=== PATIENT | male | born 1940 | race Caucasian/White ===

== ENCOUNTER 2021-07-04 16:19 | Emergency (ER) | payer MEDICARE ==
--- NOTE | 2021-07-04 16:32 | ERPHSYRPT ---
- History of Present Illness Time Seen by Provider: 07/04/21 16:27 Source: patient, EMS Exam Limitations: no limitations Physician History: This is an 81-year-old white male resident of [facility] a local nursing/extended care facility who presents via EMS because of a comment that was made that well then he will go home and shoot himself. The patient has had right foot issues including surgery and is a resident at this facility for rehab. After his surgery and a period of rehabilitation, he was sent home and fell again. He was then readmitted to [facility] where he was authorized to stay for certain period of time but now has extended beyond that time and they have rejected his appeal to stay in the facility till he is more functional. 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 Patient states he does not want to harm himself or anyone else. He said the above statement out of anger and frustration because his appeal was denied for him to stay to continue his rehabilitation. Patient has not having auditory or visual hallucinations. Timing/Duration: today Severity of Symptoms-Max: mild Severity of Symptoms-Current: none Context related to: living circumstances, other (Health issues) Suicidal thoughts: other (Comment) Associated Symptoms: frustrated Previous symptoms: no prior history Allergies/Adverse Reactions: No Known Drug Allergies Allergy (Unverified 07/04/21 16:23) Home Medications: Aspirin [Aspirin EC] 1 tab PO DAILY 07/04/21 [History] Famotidine 20 mg [Pepcid 20 MG] 40 mg PO DAILY 07/04/21 [History] Gabapentin 1 tab PO TID 07/04/21 [History] Metoprolol Tartrate 25 mg [Lopressor 25MG Tab] 1 tab PO BID 07/04/21 [History] Travel Risk - International Travel Have you traveled outside of the country in past 3 weeks: No - Coronavirus Screening Are you exhibiting any of the following symptoms?: No Close contact with a COVID-19 positive Pt in past 14-21 Days: No - Past Medical History Pertinent Past Medical History: Yes - Past Surgical History Past Surgical History: Yes - Review of Systems Constitutional: No Symptoms Eyes: No Symptoms Ears, Nose, & Throat: No Symptoms Respiratory: No Symptoms Cardiac: No Symptoms Abdominal/Gastrointestinal: No Symptoms Genitourinary Symptoms: No Symptoms Musculoskeletal: No Symptoms Skin: No Symptoms Neurological: No Symptoms Psychological: No Symptoms Endocrine: No Symptoms Hematologic/Lymphatic: No Symptoms Immunological/Allergic: No Symptoms All Other Systems: Reviewed and Negative - Nursing Vital Signs Nursing Vital Signs: Initial Vital Signs Temperature 98.1 F 07/04/21 16:24 Pulse Rate 115 H 07/04/21 16:24 Respiratory Rate 18 07/04/21 16:24 Blood Pressure 139/64 07/04/21 16:24 O2 Sat by Pulse Oximetry 98 07/04/21 16:24 Pain Scale Pain Intensity 0 - Physical Exam General Appearance: no apparent distress, alert, anxiety Eyes, Ears, Nose, Throat Exam: normal ENT inspection, moist mucous membranes Neck Exam: normal inspection, non-tender, supple, full range of motion Respiratory Exam: normal breath sounds, lungs clear, airway intact, No chest tenderness, No respiratory distress Cardiovascular Exam: regular rate/rhythm, normal heart sounds Gastrointestinal/Abdominal Exam: soft, normal bowel sounds, No tenderness Extremities Exam: other (Patient with right lower extremity postsurgical dressing and boot in place) Current Suicidality: denies suicide plan Neurological Exam: alert, normal mood/affect, calm, 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, oriented x 3, anxious, depressed affect Appearance: appropriate appearance, appropriate insight, neat, no memory impairment Behavior/Eye Contact/Speech: alert & cooperative, cooperative, good eye contact, normal speech Thoughts/Hallucinations: normal thought pattern, no apparent hallucination Skin Exam: normal color, warm, dry SpO2 Interpretation: normal O2 Delivery: Room Air - Course Nursing assessment & vital signs reviewed: Yes Ordered Tests: Active Orders 24 hr Category Date Time Status EKG-ER Only STAT Care 07/04/21 16:34 Active ACETAMINOPHEN Stat Lab 07/04/21 17:10 Completed CBC W DIFF Stat Lab 07/04/21 17:10 Completed CMP Stat Lab 07/04/21 17:10 Completed ETHYL ALCOHOL Stat Lab 07/04/21 17:10 Completed SALICYLATE Stat Lab 07/04/21 17:10 Completed UA W/RFX CULTURE Stat Lab 07/04/21 17:00 Completed Urine Triage Profile Stat Lab 07/04/21 16:53 Completed Lab/Rad Data: Laboratory Result Diagrams 07/04/21 17:10 07/04/21 17:10 Laboratory Results 07/04/21 07/04/21 07/04/21 Range/Units 17:10 17:10 17:00 WBC 9.9 (4.0-10.5) x10^3/uL RBC 4.08 L (4.1-5.6) x10^6/uL Hgb 12.1 L (12.5-18.0) g/dL Hct 38.2 L (42-50) % MCV 93.6 (78-100) fL MCH 29.7 (26-32) pg MCHC 31.7 L (32-36) g/dL RDW 14.0 (11.5-14.0) % Plt Count 235 (150-450) x10^3/uL MPV 8.5 (7.5-11.0) fL Gran % 68.1 H (36.0-66.0) % Immature Gran % (Auto) 0.5 H (0.00-0.4) % Nucleat RBC Rel Count 0.0 (0.00-0.1) % Eos # (Auto) 0.19 (0-0.5) x10^3/uL Immature Gran # (Auto) 0.05 H (0.00-0.03) x10^3u/L Absolute Lymphs (auto) 2.19 (1.0-4.6) x10^3/uL Absolute Monos (auto) 0.68 (0.0-1.3) x10^3/uL Absolute Nucleated RBC 0.00 (0.00-0.01) x10^3u/L Lymphocytes % 22.2 L (24.0-44.0) % Monocytes % 6.9 (0.0-12.0) % Eosinophils % 1.9 (0.00-5.0) % Basophils % 0.4 (0.0-0.4) % Absolute Granulocytes 6.71 (1.4-6.9) x10^3/uL Basophils # 0.04 (0-0.4) x10^3/uL Sodium 136 L (137-145) mmol/L Potassium 4.6 (3.5-5.1) mmol/L Chloride 102 (98-107) mmol/L Carbon Dioxide 28 (22-30) mmol/L Anion Gap 11.0 (5-15) MEQ/L BUN 16 (9-20) mg/dL Creatinine 0.83 (0.66-1.25) mg/dL Estimated GFR > 60.0 ML/MIN Glucose 133 H (74-106) mg/dL Calcium 9.3 (8.4-10.2) mg/dL Total Bilirubin 0.40 (0.2-1.3) mg/dL AST 22 (17-59) U/L ALT 13 (0-50) U/L Alkaline Phosphatase 93 (38-126) U/L Serum Total Protein 6.3 (6.3-8.2) g/dL Albumin 3.4 L (3.5-5.0) g/dL Urinalys Dipstick Clnc MAIN LAB Urine Color YELLOW (YELLOW) Urine Appearance CLEAR (CLEAR) Urine pH 7.0 (5-6) Ur Specific [place] 1.020 (1.005-1.025) POC Urine Protein Conf NEGATIVE (Negative) Urine Ketones NEGATIVE (NEGATIVE) Urine Nitrite NEGATIVE (NEGATIVE) Urine Bilirubin NEGATIVE (NEGATIVE) Urine Urobilinogen 0.2 (0-1) mg/dL Urine Leukocytes NEGATIVE (NEGATIVE) Urine WBC (Auto) 0-2 (0-5) /HPF Urine RBC (Auto) NONE (0-2) /HPF U Epithel Cells (Auto) NONE (FEW) /HPF Urine Bacteria (Auto) NONE (NEGATIVE) /HPF Urine RBC NEGATIVE (0-5) Sixto/ul Urine Mucus (Auto) SLIGHT (NEGATIVE) /HPF Ur Culture Indicated? NO Urine Glucose NEGATIVE (NEGATIVE) mg/dL Salicylates < 1.0 L (2-20) mg/dL Urine Opiates Level (NEGATIVE) Ur Methadone (NEGATIVE) Acetaminophen < 10 L (10-30) ug/ml Urine Barbiturates (NEGATIVE) Ur Phencyclidine (PCP) (NEGATIVE) Urine Amphetamine (NEGATIVE) U Benzodiazepine Level (NEGATIVE) Urine Cocaine (NEGATIVE) Urine Marijuana (THC) (NEGATIVE) Ethyl Alcohol < 10 (0-10) mg/dL 07/04/21 Range/Units 16:53 WBC (4.0-10.5) x10^3/uL RBC (4.1-5.6) x10^6/uL Hgb (12.5-18.0) g/dL Hct (42-50) % MCV (78-100) fL MCH (26-32) pg MCHC (32-36) g/dL RDW (11.5-14.0) % Plt Count (150-450) x10^3/uL MPV (7.5-11.0) fL Gran % (36.0-66.0) % Immature Gran % (Auto) (0.00-0.4) % Nucleat RBC Rel Count (0.00-0.1) % Eos # (Auto) (0-0.5) x10^3/uL Immature Gran # (Auto) (0.00-0.03) x10^3u/L Absolute Lymphs (auto) (1.0-4.6) x10^3/uL Absolute Monos (auto) (0.0-1.3) x10^3/uL Absolute Nucleated RBC (0.00-0.01) x10^3u/L Lymphocytes % (24.0-44.0) % Monocytes % (0.0-12.0) % Eosinophils % (0.00-5.0) % Basophils % (0.0-0.4) % Absolute Granulocytes (1.4-6.9) x10^3/uL Basophils # (0-0.4) x10^3/uL Sodium (137-145) mmol/L Potassium (3.5-5.1) mmol/L Chloride (98-107) mmol/L Carbon Dioxide (22-30) mmol/L Anion Gap (5-15) MEQ/L BUN (9-20) mg/dL Creatinine (0.66-1.25) mg/dL Estimated GFR ML/MIN Glucose (74-106) mg/dL Calcium (8.4-10.2) mg/dL Total Bilirubin (0.2-1.3) mg/dL AST (17-59) U/L ALT (0-50) U/L Alkaline Phosphatase (38-126) U/L Serum Total Protein (6.3-8.2) g/dL Albumin (3.5-5.0) g/dL Urinalys Dipstick Clnc Urine Color (YELLOW) Urine Appearance (CLEAR) Urine pH (5-6) Ur Specific [place] (1.005-1.025) POC Urine Protein Conf (Negative) Urine Ketones (NEGATIVE) Urine Nitrite (NEGATIVE) Urine Bilirubin (NEGATIVE) Urine Urobilinogen (0-1) mg/dL Urine Leukocytes (NEGATIVE) Urine WBC (Auto) (0-5) /HPF Urine RBC (Auto) (0-2) /HPF U Epithel Cells (Auto) (FEW) /HPF Urine Bacteria (Auto) (NEGATIVE) /HPF Urine RBC (0-5) Sixto/ul Urine Mucus (Auto) (NEGATIVE) /HPF Ur Culture Indicated? Urine Glucose (NEGATIVE) mg/dL Salicylates (2-20) mg/dL Urine Opiates Level NEGATIVE (NEGATIVE) Ur Methadone NEGATIVE (NEGATIVE) Acetaminophen (10-30) ug/ml Urine Barbiturates NEGATIVE (NEGATIVE) Ur Phencyclidine (PCP) NEGATIVE (NEGATIVE) Urine Amphetamine NEGATIVE (NEGATIVE) U Benzodiazepine Level NEGATIVE (NEGATIVE) Urine Cocaine NEGATIVE (NEGATIVE) Urine Marijuana (THC) NEGATIVE (NEGATIVE) Ethyl Alcohol (0-10) mg/dL - Progress Progress: improved Progress Note: 07/04/21 20:39 Medical decision making: This patient presents from [facility] and is depressed and frustrated at his medical condition and living circumstances in the senior care. He was evaluated by [facility] via telepsych history and physical exam. It was performed by Birgit NATHAN, MILES Diaz, Rich Bill. The case was staffed with Dr. Akins. The plan for this patient is to follow a safety plan that is put into place and this will be forwarded to [facility]. The patient will return back to the extended care facility. Counseled pt/family regarding: lab results, diagnosis, need for follow-up - Departure Departure Disposition: Home Clinical Impression: Depression, Anxiety about health Condition: Stable Critical Care Time: No Additional Instructions: [facility] is to follow the safety plan that is put in place by [facility]. Please follow this plan. Patient is to resume all other orders.
[2021-07-04 17:19] LABS: Mucus SLIGHT /HPF (NEGATIVE); WBC 0-2 /HPF (0-5)
[2021-07-04 17:20] LABS: Absolute Neutrophil Ct (ANC) 6.71 x10^3/uL (1.4-6.9); Basophil (Absolute #) 0.04 x10^3/uL (0-0.4); Eosinophil % 1.9 % (0.00-5.0); Eosinophil (Absolute #) 0.19 x10^3/uL (0-0.5); Hematocrit 38.2 % (42-50); Hemoglobin 12.1 g/dL (12.5-18.0); Lymphocyte (Absolute #) 2.19 x10^3/uL (1.0-4.6); Lymphocytes % 22.2 % (24.0-44.0); Mean Cell Volume 93.6 fL (78-100); Mean Corpuscular Hemoglobin 29.7 pg (26-32); Mean Corpuscular Hgb Concent. 31.7 g/dL (32-36); Mean Platelet Volume 8.5 fL (7.5-11.0); Monocyte (Absolute #) 0.68 x10^3/uL (0.0-1.3); Monocytes % 6.9 % (0.0-12.0); Neutrophil % 68.1 % (36.0-66.0); Platelet Count 235 x10^3/uL (150-450); Red Blood Count 4.08 x10^6/uL (4.1-5.6); White Blood Count 9.9 x10^3/uL (4.0-10.5)
[2021-07-04 17:25] LABS: Amphetamine,Urine NEGATIVE (NEGATIVE); Barbiturate,Urine NEGATIVE (NEGATIVE); Benzodiazepine,Urine NEGATIVE (NEGATIVE); Cocaine,Urine NEGATIVE (NEGATIVE); Methadone,Urine NEGATIVE (NEGATIVE); Opiate,Urine NEGATIVE (NEGATIVE); PCP,Urine NEGATIVE (NEGATIVE); THC,Urine NEGATIVE (NEGATIVE)
[2021-07-04 17:29] LABS: Appearance CLEAR (CLEAR); Bilirubin NEGATIVE (NEGATIVE); Dipstick done @ ? MAIN LAB; Glucose NEGATIVE (NEGATIVE); Ketones NEGATIVE (NEGATIVE); Nitrite NEGATIVE (NEGATIVE); Protein,Urine Dip NEGATIVE (Negative); RBC NEGATIVE Ery/ul (0-5); Urine Cultured Indicated? NO; Urobilinogen 0.2 mg/dL (0-1)
[2021-07-04 17:43] LABS: ALBUMIN 3.4 g/dL (3.5-5.0); BLOOD UREA NITROGEN 16 mg/dL (9-20); CHLORIDE 102 mmol/L (98-107); Calcium 9.3 mg/dL (8.4-10.2); Carbon Dioxide 28 mmol/L (22-30); Creatinine 1 0.83 mg/dL (0.66-1.25); EST GLOMERULAR FILTRATION RATE > 60.0 ML/MIN; Glucose 133 mg/dL (74-106); Potassium 4.6 mmol/L (3.5-5.1); SGOT/AST 22 U/L (17-59); SGPT/ALT 13 U/L (0-50); SODIUM 136 mmol/L (137-145); Total Protein 6.3 g/dL (6.3-8.2)
[2021-07-04 17:44] LABS: ACETAMINOPHEN < 10 ug/ml (10-30); ALKALINE PHOSPHATASE 93 U/L (38-126); ETHYL ALCOHOL < 10 mg/dL (0-10); SALICYLATE < 1.0 mg/dL (2-20)
[2021-07-04 19:03] VITALS: PULSE 88
[2021-07-04 21:14] VITALS: BP 122/68; O2SAT 94
== END 2021-07-04 21:14 | disposition home or self-care (01) ==
LOC: ED 16:19
DX: F32.A Depression, unspecified (principal); F41.1 Generalized anxiety disorder; Z59.89 Other problems related to housing and economic circumstances; Z75.8 Other problems related to medical facilities and other health care; R45.851 Suicidal ideations
CPT/HCPCS: 36415; 80053; 80307; 81015; 85025; 90791; 93005; 99284; Q3014; G0480

== ENCOUNTER 2022-09-07 16:34 | Observation (INO) | payer MEDICARE ==
[2022-09-07] MEDS ORDERED: DUONEB 0.5-3 MG/3 ml Neb IH ONE ×2 (16:57→17:18)
[2022-09-07] MEDS ORDERED: Sodium Chloride 0.9% 500 ML 500 ML IV ONE ×2 (16:59→18:40)
--- NOTE | 2022-09-07 17:29 | XRAY ---
Indication: Altered mental status. Confusion. Multiple contiguous axial images obtained through the head without contrast. Comparison: August 02, 2021 Several images are slightly degraded by motion. Again age-appropriate global atrophy and moderate periventricular degenerative micro-ischemia bilaterally. No acute intracranial hemorrhage, abnormal extra-axial fluid collection, or mass effect. Fourth ventricle is midline without hydrocephalus. Bony calvarium intact. Visualized paranasal sinuses and mastoid air cells are clear. Impression: Mild motion artifact. Continued grossly nonacute senile brain.
--- NOTE | 2022-09-07 17:29 | XRAY ---
Indication: Cough. Altered mental status. Comparison: None Portable chest markedly underinflated without focal infiltrate, consolidation, or large effusion. Heart not enlarged. Bony thorax intact with osteopenia and moderate degenerative changes. Impression: Nonacute underinflated chest.
[2022-09-07 18:07] LABS: Absolute Neutrophil Ct (ANC) 9.83 x10^3/uL (1.4-6.9); BASOPHIL % 0.2 % (0.0-0.4); Basophil (Absolute #) 0.02 x10^3/uL (0-0.4); Eosinophil % 0.1 % (0.00-5.0); Eosinophil (Absolute #) 0.01 x10^3/uL (0-0.5); Hematocrit 27.3 % (42-50); Hemoglobin 8.5 g/dL (12.5-18.0); IMMATURE GRAN # 0.08 x10^3u/L (0.00-0.03); IMMATURE GRAN % 0.6 % (0.00-0.4); Lymphocyte (Absolute #) 1.68 x10^3/uL (1.0-4.6); Lymphocytes % 13.2 % (24.0-44.0); Mean Cell Volume 89.2 fL (78-100); Mean Corpuscular Hemoglobin 27.8 pg (26-32); Mean Corpuscular Hgb Concent. 31.1 g/dL (32-36); Mean Platelet Volume 8.2 fL (7.5-11.0); Monocyte (Absolute #) 1.09 x10^3/uL (0.0-1.3); Monocytes % 8.6 % (0.0-12.0); Neutrophil % 77.3 % (36.0-66.0); Platelet Count 295 x10^3/uL (150-450); Red Blood Count 3.06 x10^6/uL (4.1-5.6); White Blood Count 12.7 x10^3/uL (4.0-10.5)
[2022-09-07 18:22] LABS: ALBUMIN 3.1 g/dL (3.5-5.0); ANION GAP 14.2 MEQ/L (5-15); BILIRUBIN,TOTAL 1.3 mg/dL (0.2-1.3); Calcium 8.1 mg/dL (8.4-10.2); Creatinine 1 1.92 mg/dL (0.66-1.25); EST GLOMERULAR FILTRATION RATE 35.6 ML/MIN; Potassium 3.5 mmol/L (3.5-5.1); Total Protein 6.6 g/dL (6.3-8.2)
[2022-09-07] MEDS ORDERED: ROCEPHIN 2 Gm-D5w 50ML BAG** 2 G/50 ML IVPB IV STA (18:36)
[2022-09-07 18:38] LABS: MAGNESIUM 1.6 mg/dL (1.6-2.3); PROCALCITONIN 0.339 ng/mL (0.030-0.080)
[2022-09-07] MEDS ORDERED: ROCEPHIN 2 Gm-D5w 50ML BAG** 2 G/50 ML IVPB IV ONE (18:40)
[2022-09-07 18:41] LABS: Appearance Turbid (Clear); Bilirubin Negative (Negative); Blood Moderate (Negative); Epithelial Cells None Seen /HPF (None Seen); Glucose, Urine Negative (Negative); Hyaline Casts NONE SEEN /LPF (0-2); Ketones Negative (Negative); Leukocyte Esterase Large (Negative); Nitrite Negative (Negative); Protein,Urine Dip 300 (Negative); WBC >100 /HPF (0-5)
[2022-09-07 18:42] LABS: ADD URINE CULTURE? YES (NO); Bacteria Few /HPF (None Seen); RBC 0-2 /HPF (0-5)
--- NOTE | 2022-09-07 19:19 | ERPHSYRPT ---
- History of Present Illness Time Seen by Provider: 09/07/22 16:41 Source: patient, EMS, [facility]dc records Exam Limitations: clinical condition Patient Subjective Stated Complaint: Dixie, nurse at the [facility], states patient has been his baseline all day talking and active but at approx 1615 pt became lethargic and confused so they called EMS. Dixie also states fdc staff attempted to straight cath patiet x2 last night without success due to wanting to check for a UTI; Dixie did not know why the staff was suspicious for UTI. Dixie states pt generally is assist x2 and in a wheelchair. Triage Nursing Assessment: Pt arousable to shaking and name; confused; oriented to name only at time of triage. EMS states pt was alert and oriented one minute and then confused the next. Skin warm/pale/dry. No apparent respiratory distress. Physician History: 82 years old male fdc resident is brought in the ER with chief complaint of altered mental status/generalized weakness/lethargy which started around 4:15 PM today. Patient baseline is usually awake alert and there was a sudden decline. Patient has a suspicion for UTI and could not get urine sample yesterday for fdc. Patient is awake and alert, confused, follows simple commands. No obvious neurodeficit. Blood pressure is on the lower side, 88 systolic but patient is not in any distress. Not a good historian and history is limited. Allergies/Adverse Reactions: No Known Drug Allergies Allergy (Unverified 09/07/22 16:59) Home Medications: Aspirin [Aspirin EC] 1 tab PO DAILY 07/04/21 [History] Albuterol Sulfate [Albuterol Sulfate Hfa] 2 puff IH Q4HPRN PRN 09/07/22 [H istory] Amitriptyline HCl 25 mg [Amitriptyline 25 mg Tablet] 25 mg PO HS 09/07/22 [History] Atorvastatin Calcium 80 mg PO HS 09/07/22 [History] Emollient Combination No.69 [Eucerin Skin Calming] 1 unit TOP BID 09/07/22 [History] Latanoprost 1 drop OP HS 09/07/22 [History] Magnesium Oxide 400 mg PO DAILY 09/07/22 [History] Metoprolol Tartrate 50 mg [Lopressor 50 MG] 50 mg PO BID 09/07/22 [ History] PANTOPRAZOLE 40 mg Tablet [Protonix 40MG Tablet] 40 mg PO BID 09/07/22 [History] Polyethylene Glycol 3350 [Clearlax] 1 scoop PO DAILY PRN 09/07/22 [History] hydroCHLOROthiazide [Hydrochlorothiazide] 12.5 mg PO DAILY 09/07/22 [History] Hx Tetanus, Diphtheria Vaccination/Date Given: (unknown) Hx Influenza Vaccination/Date Given: (unknown) Hx Pneumococcal Vaccination/Date Given: (unknown) Travel Risk - International Travel Have you traveled outside of the country in past 3 weeks: No - Coronavirus Screening Are you exhibiting any of the following symptoms?: Yes Symptoms: Cough: New Onset Close contact with a COVID-19 positive Pt in past 14-21 Days: No - Vaccine Status Have you recieved a Covid-19 vaccination: (unknown) Jde Developer: Unknown - Vaccination Dates Date of 2cond Vaccination (if applicable): na Dates if Unknown: na - Review of Systems All Other Systems: Unable due to condition - Past Medical History Pertinent Past Medical History: Yes Neurological History: Peripheral Neuropathy Cardiac History: Hypertension Respiratory History: No Pertinent History Endocrine Medical History: No Pertinent History Musculoskeletal History: No Pertinent History GI Medical History: GERD History: No Pertinent History Psycho-Social History: No Pertinent History Male Reproductive Disorders: No Pertinent History - Past Surgical History Past Surgical History: Yes Neuro Surgical History: No Pertinent History Cardiac: No Pertinent History Respiratory: No Pertinent History Gastrointestinal: No Pertinent History Genitourinary: No Pertinent History Musculoskeletal: No Pertinent History Male Surgical History: No Pertinent History - Social History Smoking Status: Unknown if ever smoked Exposure to second hand smoke: No Drug Use: none Patient Lives Alone: No (ECF) - Nursing Vital Signs Nursing Vital Signs: Initial Vital Signs Temperature 99.8 F 09/07/22 16:45 Pulse Rate 94 H 09/07/22 16:45 Respiratory Rate 23 09/07/22 16:45 Blood Pressure 106/51 09/07/22 16:45 O2 Sat by Pulse Oximetry 93 L 09/07/22 16:45 Pain Scale Pain Intensity 0 - Physical Exam General Appearance: no apparent distress, alert Eye Exam: PERRL/EOMI Ears, Nose, Throat Exam: normal ENT inspection, pharynx normal Neck Exam: normal inspection, non-tender, supple, full range of motion Respiratory Exam: diminished breath sounds, rhonchi Cardiovascular Exam: regular rate/rhythm, normal heart sounds Gastrointestinal/Abdomen Exam: soft, normal bowel sounds, No tenderness Extremity Exam: normal range of motion, pedal edema Neurologic Exam: alert, customer sales 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 II-XII nml as tested, No oriented x 3, No cooperative, No nml station & gait (Not checked), No motor deficits (No gross deficit) Skin Exam: normal color SpO2 Interpretation: normal SpO2: 97 O2 Delivery: Room Air - Course EKG Interpreted by Me: RATE (94), Sinus Rhythm, NORMAL AXIS, NORMAL INTERVALS, Non-specific ST Changes Ordered Tests: Active Orders 24 hr Category Date Time Status Associate Director Financial Aid STAT Care 09/07/22 16:58 Active EKG-ER Only STAT Care 09/07/22 16:57 Active Wiley [Catheter-[place] Wiley] STAT Care 09/07/22 18:11 Active IV Insertion STAT Care 09/07/22 16:57 Active Oxygen-ED Only Nasal Cannula 3 lpm Care 09/07/22 16:57 Active CHEST 1 VIEW (PORTABLE) Stat Exams 09/07/22 16:58 Completed HEAD WITHOUT CONTRAST [CT] Stat Exams 09/07/22 16:58 Completed BLOOD CULTURE Stat Lab 09/07/22 18:00 Received CBC W DIFF Stat Lab 09/07/22 18:00 Completed CMP Stat Lab 09/07/22 18:00 Completed CULTURE,URINE Stat Lab 09/07/22 18:10 Received Lactic Acid Stat Lab 09/07/22 17:58 Completed MAGNESIUM Stat Lab 09/07/22 18:00 Completed NT PRO BNPII Stat Lab 09/07/22 18:00 Completed PROCALCITONIN Stat Lab 09/07/22 18:00 Completed TROPONIN Q4H Lab 09/07/22 18:00 Completed TROPONIN Q4H Lab 09/07/22 21:00 Ordered TROPONIN Q4H Lab 09/08/22 01:00 Ordered UA W/RFX UR CULTURE Stat Lab 09/07/22 18:10 Completed Respiratory Therapy Assessment DAILY RT 09/07/22 17:24 Active Transfer Order Routine Transfer 09/07/22 Ordered Medication Summary Discontinued Medications Generic Name Dose Route Start Last Admin Trade Name Freq PRN Reason Stop Dose Admin Albuterol/Ipratropium 3 ml 09/07/22 16:57 09/07/22 17:20 Ipratropium/Albuterol Sulfate 3 Ml Ampul.Neb IH 09/07/22 16:58 3 ml STAT ONE Administration Albuterol/Ipratropium Confirm 09/07/22 17:18 Ipratropium/Albuterol Sulfate 3 Ml Ampul.Neb Administered 09/07/22 17:19 Dose 3 ml IH .STK-MED ONE Sodium Chloride 500 mls @ 500 mls/hr 09/07/22 16:59 09/07/22 19:52 Sodium Chloride 0.9% 500 Ml IV 09/07/22 17:58 Infused .Q1H ONE Infusion Ceftriaxone Sodium/Dextrose 2 g in 50 mls @ 100 mls/hr 09/07/22 18:36 09/07/22 19:51 Rocephin 2 Gm-D5w 50ml Bag IV 09/07/22 19:05 Infused STAT STA Infusion Ceftriaxone Sodium/Dextrose Confirm 09/07/22 18:40 Rocephin 2 Gm-D5w 50ml Bag Administered 09/07/22 18:41 Dose 2 g in 50 mls @ ud IV .STK-MED ONE Sodium Chloride Confirm 09/07/22 18:40 Sodium Chloride 0.9% 500 Ml Administered 09/07/22 18:41 Dose 500 mls @ ud IV .STK-MED ONE Lab/Rad Data: Laboratory Result Diagrams 09/07/22 18:00 09/07/22 18:00 Laboratory Results 09/07/22 09/07/22 09/07/22 Range/Units 18:10 18:00 18:00 WBC (4.0-10.5) x10^3/uL RBC (4.1-5.6) x10^6/uL Hgb (12.5-18.0) g/dL Hct (42-50) % MCV (78-100) fL MCH (26-32) pg MCHC (32-36) g/dL RDW (11.5-14.0) % Plt Count (150-450) x10^3/uL MPV (7.5-11.0) fL Gran % (36.0-66.0) % Immature Gran % (Auto) (0.00-0.4) % Nucleat RBC Rel Count (0.00-0.1) % Eos # (Auto) (0-0.5) x10^3/uL Immature Gran # (Auto) (0.00-0.03) x10^3u/L Absolute Lymphs (auto) (1.0-4.6) x10^3/uL Absolute Monos (auto) (0.0-1.3) x10^3/uL Absolute Nucleated RBC (0.00-0.01) x10^3u/L Lymphocytes % (24.0-44.0) % Monocytes % (0.0-12.0) % Eosinophils % (0.00-5.0) % Basophils % (0.0-0.4) % Absolute Granulocytes (1.4-6.9) x10^3/uL Basophils # (0-0.4) x10^3/uL Sodium 132 L (137-145) mmol/L Potassium 3.5 (3.5-5.1) mmol/L Chloride 93 L (98-107) mmol/L Carbon Dioxide 29 (22-30) mmol/L Anion Gap 14.2 (5-15) MEQ/L BUN 26 H (9-20) mg/dL Creatinine 1.92 H (0.66-1.25) mg/dL Estimated GFR 35.6 ML/MIN Glucose 123 H (74-106) mg/dL Lactic Acid (0.4-2.0) Calcium 8.1 L (8.4-10.2) mg/dL Magnesium 1.6 (1.6-2.3) mg/dL Total Bilirubin 1.30 (0.2-1.3) mg/dL AST 21 (17-59) U/L ALT 21 (0-50) U/L Alkaline Phosphatase 76 (38-126) U/L Troponin I (0.000-0.034) ng/mL NT-Pro-B Natriuret Pep 3230 (<300) pg/mL Serum Total Protein 6.6 (6.3-8.2) g/dL Albumin 3.1 L (3.5-5.0) g/dL Procalcitonin 0.339 H (0.030-0.080) ng/mL Urine Color Yellow (Yellow) Urine Appearance Turbid A (Clear) Urine pH 7.0 (4.6-8.0) Ur Specific [place] 1.010 (1.005-1.030) Urine Protein 300 A (Negative) Urine Glucose (UA) Negative (Negative) mg/dL Urine Ketones Negative (Negative) Urine Blood Moderate A (Negative) Urine Nitrite Negative (Negative) Urine Bilirubin Negative (Negative) Urine Urobilinogen 1.0 A (0.2) mg/dL Ur Leukocyte Esterase Large A (Negative) U Hyaline Cast (Auto) NONE SEEN (0-2) /LPF Urine Microscopic RBC 0-2 (0-5) /HPF Urine Microscopic WBC >100 A (0-5) /HPF Ur Epithelial Cells None Seen (None Seen) /HPF Urine Bacteria Few A (None Seen) /HPF Urine Culture Reflexed YES (NO) 09/07/22 09/07/22 09/07/22 Range/Units 18:00 18:00 17:58 WBC 12.7 H (4.0-10.5) x10^3/uL RBC 3.06 L (4.1-5.6) x10^6/uL Hgb 8.5 L (12.5-18.0) g/dL Hct 27.3 L (42-50) % MCV 89.2 (78-100) fL MCH 27.8 (26-32) pg MCHC 31.1 L (32-36) g/dL RDW 14.0 (11.5-14.0) % Plt Count 295 (150-450) x10^3/uL MPV 8.2 (7.5-11.0) fL Gran % 77.3 H (36.0-66.0) % Immature Gran % (Auto) 0.6 H (0.00-0.4) % Nucleat RBC Rel Count 0.0 (0.00-0.1) % Eos # (Auto) 0.01 (0-0.5) x10^3/uL Immature Gran # (Auto) 0.08 H (0.00-0.03) x10^3u/L Absolute Lymphs (auto) 1.68 (1.0-4.6) x10^3/uL Absolute Monos (auto) 1.09 (0.0-1.3) x10^3/uL Absolute Nucleated RBC 0.00 (0.00-0.01) x10^3u/L Lymphocytes % 13.2 L (24.0-44.0) % Monocytes % 8.6 (0.0-12.0) % Eosinophils % 0.1 (0.00-5.0) % Basophils % 0.2 (0.0-0.4) % Absolute Granulocytes 9.83 H (1.4-6.9) x10^3/uL Basophils # 0.02 (0-0.4) x10^3/uL Sodium (137-145) mmol/L Potassium (3.5-5.1) mmol/L Chloride (98-107) mmol/L Carbon Dioxide (22-30) mmol/L Anion Gap (5-15) MEQ/L BUN (9-20) mg/dL Creatinine (0.66-1.25) mg/dL Estimated GFR ML/MIN Glucose (74-106) mg/dL Lactic Acid 1.2 (0.4-2.0) Calcium (8.4-10.2) mg/dL Magnesium (1.6-2.3) mg/dL Total Bilirubin (0.2-1.3) mg/dL AST (17-59) U/L ALT (0-50) U/L Alkaline Phosphatase (38-126) U/L Troponin I 0.016 (0.000-0.034) ng/mL NT-Pro-B Natriuret Pep (<300) pg/mL Serum Total Protein (6.3-8.2) g/dL Albumin (3.5-5.0) g/dL Procalcitonin (0.030-0.080) ng/mL Urine Color (Yellow) Urine Appearance (Clear) Urine pH (4.6-8.0) Ur Specific [place] (1.005-1.030) Urine Protein (Negative) Urine Glucose (UA) (Negative) mg/dL Urine Ketones (Negative) Urine Blood (Negative) Urine Nitrite (Negative) Urine Bilirubin (Negative) Urine Urobilinogen (0.2) mg/dL Ur Leukocyte Esterase (Negative) U Hyaline Cast (Auto) (0-2) /LPF Urine Microscopic RBC (0-5) /HPF Urine Microscopic WBC (0-5) /HPF Ur Epithelial Cells (None Seen) /HPF Urine Bacteria (None Seen) /HPF Urine Culture Reflexed (NO) - Progress Progress Note: 09/07/22 19:17 82 years old male fdc resident is brought in the ER with chief complaint of altered mental status/generalized weakness/lethargy which started around 4:15 PM today. Patient baseline is usually awake alert and there was a sudden decline. Patient has a suspicion for UTI and could not get urine sample yesterday for fdc. Patient is awake and alert, confused, follows simple commands. No obvious neurodeficit. Blood pressure is on the lower side, 88 systolic but patient is not in any distress. Not a good historian and history is limited. Given gentle hydration, blood pressure improved to 120s. Work-up showed white count of 12, worsening of renal functions with a baseline creatinine of 1 and today 1.92. We will continue with gentle hydration. No obvious infiltrative process on the chest x-ray. CT head is negative for any acute findings. Patient is more awake and alert but not fully oriented on reevaluation. Does have UTI and started on Rocephin. Hemoglobin is 8.5 which is stable from previous which was 8.4. Patient has normal lactate but procalcitonin 1.33. I believe patient's altered mentation is secondary to UTI related. Patient will be admitted to hospitalist service. 09/07/22 19:20 Will see patient in: hospital (observation) Counseled pt/family regarding: lab results, diagnosis, rad results Medical Desision Making - Independent Historian Additional History obtained from: Longterm nurse, [facility] Eel Spear/EMT - Discussion of managment Care discussed with:: hospitalist Reviewed:: Test results, Need for additional workup Agreed on:: Treatment plan, place in obs Will see patient: in hospital - Diagnostic Testing Diagnostic test were ordered, analyzed, and reviewed by me: Yes Radiological Interpretation: Reviewed by me - Risk of complications The pt has a high risk of morbidity or mortality based on: Decision regarding hospitilization or escalation of hosp level of care - Departure Departure Disposition: Observation Clinical Impression: Altered mental status, Acute renal failure, UTI (urinary tract infection) Condition: Fair Critical Care Time: No Referrals: SEDA JOY OF [Primary Care Provider] - Follow up/PCP as directed
--- NOTE | 2022-09-08 00:02 | PCM.HP ---
History of Present Illness - Chief Complaint Chief Complaint: Altered mental status, acute renal failure, UTI Date: 09/07/22 History of Present Illness: This is a 82-year-old male admitted for altered mental status and UTI. He has past medical history of hypertension, GERD, hyperlipidemia. He presented to the ED this afternoon from senior care facility for evaluation of fairly acute onset lethargy and confusion per nursing staff. Per report staff at [facility] attempted straight cath x2 last night without success due to wanting to check UA for UTI. On arrival he was 99.8, heart rate 94, blood pressure 106/51. Labs significant for WBC 12.7, hemoglobin 8.5 (hemoglobin 8.4 August 07, 2022), platelets 295, sodium 132, creatinine 1.9 (1.0 08/02/2021), lactate 1.2, troponin 0.01, procalcitonin 0.33, UA positive for 300 protein, moderate blood, large leukocyte esterases, greater than 100 WBCs, few bacteria. CT head with mild motion artifact. Continued grossly nonacute senile brain. Chest x-ray with no acute pathology. In the ED he received DuoNeb, ceftriaxone, 500 cc NS. - Review of Systems Eyes: No Symptoms Ears, Nose, & Throat: No Symptoms Respiratory: No Symptoms Cardiac: No Symptoms Abdominal/Gastrointestinal: Abdominal Pain Genitourinary Symptoms: Dysuria Musculoskeletal: No Symptoms Psychological: No Symptoms Endocrine: No Symptoms Medications & Allergies Home Medications: Home Medication List Aspirin [Aspirin EC] 1 tab PO DAILY 07/04/21 [History Confirmed 09/07/22] Albuterol Sulfate [Albuterol Sulfate Hfa] 2 puff IH Q4HPRN PRN 09/07/22 [History Confirmed 09/07/22] Amitriptyline HCl 25 mg [Amitriptyline 25 mg Tablet] 25 mg PO HS 09/07/22 [History Confirmed 09/07/22] Atorvastatin Calcium 80 mg PO HS 09/07/22 [History Confirmed 09/07/22] Emollient Combination No.69 [Eucerin Skin Calming] 1 unit TOP BID 09/07/22 [History Confirmed 09/07/22] Latanoprost 1 drop OP HS 09/07/22 [History Confirmed 09/07/22] Magnesium Oxide 400 mg PO DAILY 09/07/22 [History Confirmed 09/07/22] Metoprolol Tartrate 50 mg [Lopressor 50 MG] 50 mg PO BID 09/07/22 [History Confirmed 09/07/22] PANTOPRAZOLE 40 mg Tablet [Protonix 40MG Tablet] 40 mg PO BID 09/07/22 [History Confirmed 09/07/22] Polyethylene Glycol 3350 [Clearlax] 1 scoop PO DAILY PRN 09/07/22 [History Confirmed 09/07/22] hydroCHLOROthiazide [Hydrochlorothiazide] 12.5 mg PO DAILY 09/07/22 [History Confirmed 09/07/22] Allergies/Adverse Reactions: Allergies Allergy/AdvReac Type Severity Reaction Status Date / Time No Known Drug Allergies Allergy Unverified 09/07/22 16:59 - Past Medical History Past Medical History: Yes Neurological History: Peripheral Neuropathy Cardiac History: Hypertension Respiratory History: No Pertinent History Endocrine Medical History: No Pertinent History Musculoskelatal History: No Pertinent History GI Medical History: GERD History: No Pertinent History Pyscho-Social History: No Pertinent History Male Reproductive Disorders: No Pertinent History - Past Surgical History Past Surgical History: Yes Neuro Surgical History: No Pertinent History Cardiac History: No Pertinent History Respiratory Surgery: No Pertinent History GI Surgical History: No Pertinent History Genitourinary Surgical Hx: No Pertinent History Musculskeletal Surgical Hx: No Pertinent History Male Surgical History: No Pertinent History - Social History Smoking Status: Never smoker Exposure to second hand smoke: No Alcohol: None Drug Use: none - Physical Exam Vital Signs: Vital Signs - 24 hr Temp Pulse Resp BP BP Pulse Ox 09/07/22 22:44 98.5 F 88 20 140/66 94 L 09/07/22 20:55 88 16 90 L 09/07/22 20:24 97 09/07/22 19:02 29 L 20 92/79 97 09/07/22 18:52 79 16 109/80 97 09/07/22 18:48 82 22 109/80 94 L 09/07/22 18:40 57 L 19 09/07/22 18:30 65 27 H 09/07/22 18:20 89 20 57 L 09/07/22 18:18 87 33 H 75 L 09/07/22 17:50 92 H 24 122/63 93 L 09/07/22 17:24 90 24 92 L 09/07/22 16:45 99.8 F 94 H 23 106/51 93 L General Appearance: no apparent distress Neurologic Exam: alert Eye Exam: PERRL/EOMI Ears, Nose, Throat Exam: normal ENT inspection Neck Exam: normal inspection Respiratory Exam: normal breath sounds Cardiovascular Exam: regular rate/rhythm Gastrointestinal/Abdomen Exam: soft, normal bowel sounds Extremity Exam: swelling (erythema in lower extremities) Skin Exam: warm, dry Wound Assessment: Skin/Wound Assessment Wound/Incision Assessment Start: 09/07/22 21:29 Text: Status: Active Freq: Q6H Protocol: Document 09/07/22 21:29 RS (Rec: 09/07/22 21:49 RS [id number]) Wound/Incision Assessment right buttock Wound Assessment Admission Wound Type Abrasion Wound Stage Unstageable Dressing Status Dry & Intact Drainage Amount None Drainage Odor None/Absent General Appearance Open to air Length (cm) (cm) 9 Width (cm) (cm) 7 Depth (cm) (cm) 0 Wound Bed Lesser Portion Red (Granulation) Surrounding Tissue [place] Comment photo taken Results - Labs Lab/Micro Results: Lab Results-Last 24 Hours 09/07/22 09/07/22 09/07/22 Range/Units 17:58 18:00 18:00 WBC 12.7 H (4.0-10.5) x10^3/uL RBC 3.06 L (4.1-5.6) x10^6/uL Hgb 8.5 L (12.5-18.0) g/dL Hct 27.3 L (42-50) % MCV 89.2 (78-100) fL MCH 27.8 (26-32) pg MCHC 31.1 L (32-36) g/dL RDW 14.0 (11.5-14.0) % Plt Count 295 (150-450) x10^3/uL MPV 8.2 (7.5-11.0) fL Gran % 77.3 H (36.0-66.0) % Immature Gran % (Auto) 0.6 H (0.00-0.4) % Nucleat RBC Rel Count 0.0 (0.00-0.1) % Eos # (Auto) 0.01 (0-0.5) x10^3/uL Immature Gran # (Auto) 0.08 H (0.00-0.03) x10^3u/L Absolute Lymphs (auto) 1.68 (1.0-4.6) x10^3/uL Absolute Monos (auto) 1.09 (0.0-1.3) x10^3/uL Absolute Nucleated RBC 0.00 (0.00-0.01) x10^3u/L Lymphocytes % 13.2 L (24.0-44.0) % Monocytes % 8.6 (0.0-12.0) % Eosinophils % 0.1 (0.00-5.0) % Basophils % 0.2 (0.0-0.4) % Absolute Granulocytes 9.83 H (1.4-6.9) x10^3/uL Basophils # 0.02 (0-0.4) x10^3/uL Sodium (137-145) mmol/L Potassium (3.5-5.1) mmol/L Chloride (98-107) mmol/L Carbon Dioxide (22-30) mmol/L Anion Gap (5-15) MEQ/L BUN (9-20) mg/dL Creatinine (0.66-1.25) mg/dL Estimated GFR ML/MIN Glucose (74-106) mg/dL Lactic Acid 1.2 (0.4-2.0) Calcium (8.4-10.2) mg/dL Magnesium (1.6-2.3) mg/dL Total Bilirubin (0.2-1.3) mg/dL AST (17-59) U/L ALT (0-50) U/L Alkaline Phosphatase (38-126) U/L Troponin I 0.016 (0.000-0.034) ng/mL NT-Pro-B Natriuret Pep (<300) pg/mL Serum Total Protein (6.3-8.2) g/dL Albumin (3.5-5.0) g/dL Procalcitonin (0.030-0.080) ng/mL Urine Color (Yellow) Urine Appearance (Clear) Urine pH (4.6-8.0) Ur Specific [place] (1.005-1.030) Urine Protein (Negative) Urine Glucose (UA) (Negative) mg/dL Urine Ketones (Negative) Urine Blood (Negative) Urine Nitrite (Negative) Urine Bilirubin (Negative) Urine Urobilinogen (0.2) mg/dL Ur Leukocyte Esterase (Negative) U Hyaline Cast (Auto) (0-2) /LPF Urine Microscopic RBC (0-5) /HPF Urine Microscopic WBC (0-5) /HPF Ur Epithelial Cells (None Seen) /HPF Urine Bacteria (None Seen) /HPF Urine Culture Reflexed (NO) 09/07/22 09/07/22 09/07/22 Range/Units 18:00 18:00 18:10 WBC (4.0-10.5) x10^3/uL RBC (4.1-5.6) x10^6/uL Hgb (12.5-18.0) g/dL Hct (42-50) % MCV (78-100) fL MCH (26-32) pg MCHC (32-36) g/dL RDW (11.5-14.0) % Plt Count (150-450) x10^3/uL MPV (7.5-11.0) fL Gran % (36.0-66.0) % Immature Gran % (Auto) (0.00-0.4) % Nucleat RBC Rel Count (0.00-0.1) % Eos # (Auto) (0-0.5) x10^3/uL Immature Gran # (Auto) (0.00-0.03) x10^3u/L Absolute Lymphs (auto) (1.0-4.6) x10^3/uL Absolute Monos (auto) (0.0-1.3) x10^3/uL Absolute Nucleated RBC (0.00-0.01) x10^3u/L Lymphocytes % (24.0-44.0) % Monocytes % (0.0-12.0) % Eosinophils % (0.00-5.0) % Basophils % (0.0-0.4) % Absolute Granulocytes (1.4-6.9) x10^3/uL Basophils # (0-0.4) x10^3/uL Sodium 132 L (137-145) mmol/L Potassium 3.5 (3.5-5.1) mmol/L Chloride 93 L (98-107) mmol/L Carbon Dioxide 29 (22-30) mmol/L Anion Gap 14.2 (5-15) MEQ/L BUN 26 H (9-20) mg/dL Creatinine 1.92 H (0.66-1.25) mg/dL Estimated GFR 35.6 ML/MIN Glucose 123 H (74-106) mg/dL Lactic Acid (0.4-2.0) Calcium 8.1 L (8.4-10.2) mg/dL Magnesium 1.6 (1.6-2.3) mg/dL Total Bilirubin 1.30 (0.2-1.3) mg/dL AST 21 (17-59) U/L ALT 21 (0-50) U/L Alkaline Phosphatase 76 (38-126) U/L Troponin I (0.000-0.034) ng/mL NT-Pro-B Natriuret Pep 3230 (<300) pg/mL Serum Total Protein 6.6 (6.3-8.2) g/dL Albumin 3.1 L (3.5-5.0) g/dL Procalcitonin 0.339 H (0.030-0.080) ng/mL Urine Color Yellow (Yellow) Urine Appearance Turbid A (Clear) Urine pH 7.0 (4.6-8.0) Ur Specific [place] 1.010 (1.005-1.030) Urine Protein 300 A (Negative) Urine Glucose (UA) Negative (Negative) mg/dL Urine Ketones Negative (Negative) Urine Blood Moderate A (Negative) Urine Nitrite Negative (Negative) Urine Bilirubin Negative (Negative) Urine Urobilinogen 1.0 A (0.2) mg/dL Ur Leukocyte Esterase Large A (Negative) U Hyaline Cast (Auto) NONE SEEN (0-2) /LPF Urine Microscopic RBC 0-2 (0-5) /HPF Urine Microscopic WBC >100 A (0-5) /HPF Ur Epithelial Cells None Seen (None Seen) /HPF Urine Bacteria Few A (None Seen) /HPF Urine Culture Reflexed YES (NO) 09/07/22 Range/Units 21:31 WBC (4.0-10.5) x10^3/uL RBC (4.1-5.6) x10^6/uL Hgb (12.5-18.0) g/dL Hct (42-50) % MCV (78-100) fL MCH (26-32) pg MCHC (32-36) g/dL RDW (11.5-14.0) % Plt Count (150-450) x10^3/uL MPV (7.5-11.0) fL Gran % (36.0-66.0) % Immature Gran % (Auto) (0.00-0.4) % Nucleat RBC Rel Count (0.00-0.1) % Eos # (Auto) (0-0.5) x10^3/uL Immature Gran # (Auto) (0.00-0.03) x10^3u/L Absolute Lymphs (auto) (1.0-4.6) x10^3/uL Absolute Monos (auto) (0.0-1.3) x10^3/uL Absolute Nucleated RBC (0.00-0.01) x10^3u/L Lymphocytes % (24.0-44.0) % Monocytes % (0.0-12.0) % Eosinophils % (0.00-5.0) % Basophils % (0.0-0.4) % Absolute Granulocytes (1.4-6.9) x10^3/uL Basophils # (0-0.4) x10^3/uL Sodium (137-145) mmol/L Potassium (3.5-5.1) mmol/L Chloride (98-107) mmol/L Carbon Dioxide (22-30) mmol/L Anion Gap (5-15) MEQ/L BUN (9-20) mg/dL Creatinine (0.66-1.25) mg/dL Estimated GFR ML/MIN Glucose (74-106) mg/dL Lactic Acid (0.4-2.0) Calcium (8.4-10.2) mg/dL Magnesium (1.6-2.3) mg/dL Total Bilirubin (0.2-1.3) mg/dL AST (17-59) U/L ALT (0-50) U/L Alkaline Phosphatase (38-126) U/L Troponin I 0.018 (0.000-0.034) ng/mL NT-Pro-B Natriuret Pep (<300) pg/mL Serum Total Protein (6.3-8.2) g/dL Albumin (3.5-5.0) g/dL Procalcitonin (0.030-0.080) ng/mL Urine Color (Yellow) Urine Appearance (Clear) Urine pH (4.6-8.0) Ur Specific [place] (1.005-1.030) Urine Protein (Negative) Urine Glucose (UA) (Negative) mg/dL Urine Ketones (Negative) Urine Blood (Negative) Urine Nitrite (Negative) Urine Bilirubin (Negative) Urine Urobilinogen (0.2) mg/dL Ur Leukocyte Esterase (Negative) U Hyaline Cast (Auto) (0-2) /LPF Urine Microscopic RBC (0-5) /HPF Urine Microscopic WBC (0-5) /HPF Ur Epithelial Cells (None Seen) /HPF Urine Bacteria (None Seen) /HPF Urine Culture Reflexed (NO) Accuchecks Date 09/07/22 - Radiology Impressions Radiology Exams & Impressions: Radiology Procedures Category Date Time Status CHEST 1 VIEW (PORTABLE) Stat Exams 09/07/22 16:58 Completed HEAD WITHOUT CONTRAST [CT] Stat Exams 09/07/22 16:58 Completed - Other Procedures and Tests Respiratory Therapy 09/07/22 21:14 Respiratory Therapy Assessment DAILY Assessment/Plan (1) Acute renal failure Current Visit: Yes Status: Acute (2) Altered mental status Current Visit: Yes Status: Acute Code(s): R41.82 - ALTERED MENTAL STATUS, UNSPECIFIED (3) UTI (urinary tract infection) Current Visit: Yes Status: Acute Assessment & Plan: ASSESSMENT #Acute metabolic encephalopathy #UTI #Mild hyponatremia #Acute kidney injury, creatinine 1.9 #Lower extremity cellulitis #History of hypertension #History of hyperlipidemia PLAN -Continue ceftriaxone -Follow renal panel and urine output -Gentle IV fluids -Follow cultures Prophylaxis: Lovenox Entire encounter performed via telemedicine Code(s): N39.0 - URINARY TRACT INFECTION, SITE NOT SPECIFIED Telemedicine Encounter - Telemedicine Encounter Telemedicine Encounter: The entirety of this encounter was performed via Telemedicine"
[2022-09-08] MEDS ORDERED: DUONEB 0.5-3 MG/3 ml Neb IH SCH (01:00)
[2022-09-08] MEDS: Sodium Chloride 0.9% 1000 ML 1,000 ML IV SCH ×2 (02:16→12:29)
[2022-09-08 02:19] LABS: Absolute Neutrophil Ct (ANC) 9.07 x10^3/uL (1.4-6.9); BASOPHIL % 0.3 % (0.0-0.4); Basophil (Absolute #) 0.04 x10^3/uL (0-0.4); Eosinophil % 0.3 % (0.00-5.0); Eosinophil (Absolute #) 0.04 x10^3/uL (0-0.5); Hematocrit 24.2 % (42-50); Hemoglobin 7.6 g/dL (12.5-18.0); IMMATURE GRAN # 0.08 x10^3u/L (0.00-0.03); IMMATURE GRAN % 0.7 % (0.00-0.4); Lymphocytes % 15.8 % (24.0-44.0); Mean Cell Volume 90.3 fL (78-100); Mean Corpuscular Hemoglobin 28.4 pg (26-32); Mean Corpuscular Hgb Concent. 31.4 g/dL (32-36); Mean Platelet Volume 8.3 fL (7.5-11.0); Monocyte (Absolute #) 0.91 x10^3/uL (0.0-1.3); Monocytes % 7.6 % (0.0-12.0); Neutrophil % 75.3 % (36.0-66.0); Platelet Count 263 x10^3/uL (150-450); Red Blood Count 2.68 x10^6/uL (4.1-5.6); Red Cell Distribution Width 14.2 % (11.5-14.0)
[2022-09-08 03:03] LABS: ALBUMIN 2.5 g/dL (3.5-5.0); ANION GAP 11.5 MEQ/L (5-15); Calcium 7.7 mg/dL (8.4-10.2); Creatinine 1 1.86 mg/dL (0.66-1.25); PREALBUMIN 6.24 mg/dL (17.6-36.0); Potassium 3.2 mmol/L (3.5-5.1); Total Protein 5.2 g/dL (6.3-8.2)
[2022-09-08] MEDS: DUONEB 0.5-3 MG/3 ml Neb IH PRN (03:10)
[2022-09-08] MEDS ORDERED: ZOCOR 20MG ONE (03:16)
[2022-09-08] MEDS ORDERED: AMITRIPTYLINE 25 MG TABLET ONE (03:31)
[2022-09-08] MEDS: AMITRIPTYLINE 25 MG TABLET PO SCH (03:33)
[2022-09-08] MEDS: NYSTOP 30 GM CREAM TOP SCH (09:27)
[2022-09-08] MEDS: ENOXAPARIN SODIUM SQ SCH (09:28)
[2022-09-08] MEDS ORDERED: VENTOLIN COMMON CANISTER IH PRN (09:54)
[2022-09-08] MEDS ORDERED: Miralax Powder 17GM PACKET PO PRN (09:54)
[2022-09-08] MEDS ORDERED: [UNRECOGNIZED DRUG - OTHER] TOP SCH (10:00)
[2022-09-08] MEDS ORDERED: Protonix 40MG Tablet PO SCH (10:00)
[2022-09-08] MEDS ORDERED: PROTONIX 40 MG IV IV SCH (10:00)
[2022-09-08] MEDS ORDERED: NON-FORMULARY ITEM (Magnesium Oxide [Magnesium Oxide] 400 MG Tablet) PO SCH (10:00)
[2022-09-08] MEDS: ECOTRIN 81 MG PO SCH (10:27)
[2022-09-08] MEDS: MAG-OX 400 PO SCH (10:27)
[2022-09-08] MEDS: Eucerin Lotion (HYDROCERIN) TP SCH (10:27)
--- NOTE | 2022-09-08 17:07 | PCM.NOTE ---
Date and Time: 09/08/22 1702 Subjective Assessment: No new complaints except chronic bilateral foot discomfort (unchanged). 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, normal mood/affect, nml cerebellar function Skin Exam: other (bilateral chronic appearing foot erythema and edema noted.) Wound Assessment: Skin/Wound Assessment Wound/Incision Assessment Start: 09/07/22 21:29 Text: Status: Active Freq: Q6H Protocol: Document 09/08/22 14:00 ENDY (Rec: 09/08/22 14:04 ENDY [id number]) Wound/Incision Assessment right buttock Wound Assessment Admission Wound Type Abrasion Wound Stage Stage I Dressing Status Dry & Intact Drainage Amount None Drainage Odor None/Absent General Appearance Well Approximated Wound Bed Greatest Portion Red (Granulation) Wound Bed Lesser Portion Red (Granulation) Surrounding Tissue [place] Packing Type Gauze Pads Primary Dressing Gauze Pads Wound Photo Photo Taken Yes Date: 09/07/22 Time: 08:45 Distance from Wound: 6inches Eye Exam: PERRL, EOMI, eyes nml inspection Ears, Nose, Throat Exam: normal ENT inspection Neck Exam: normal inspection, non-tender, supple, full range of motion Respiratory Exam: normal breath sounds, lungs clear Cardiovascular Exam: regular rate/rhythm, normal heart sounds Gastrointestinal/Abdomen Exam: soft, normal bowel sounds Extremity Exam: pedal edema, swelling Back Exam: normal range of motion OBJECTIVE DATA Vital Signs: Vital Signs - 24 hr Temp Pulse Resp BP BP Pulse Ox 09/08/22 16:00 97.8 F 100 H 16 133/61 92 L 09/08/22 11:26 98.0 F 87 16 146/60 96 09/08/22 09:14 117 H 18 97 09/08/22 07:02 98.0 F 96 H 16 122/58 92 L 09/08/22 04:00 97 F 93 H 16 137/66 88 L 09/08/22 03:10 93 H 16 88 L 09/08/22 00:00 97 F 76 16 137/66 95 09/07/22 22:44 98.5 F 88 20 140/66 94 L 09/07/22 20:55 88 16 90 L 09/07/22 20:24 97 09/07/22 19:02 29 L 20 92/79 97 09/07/22 18:52 79 16 109/80 97 09/07/22 18:48 82 22 109/80 94 L 09/07/22 18:40 57 L 19 09/07/22 18:30 65 27 H 09/07/22 18:20 89 20 57 L 09/07/22 18:18 87 33 H 75 L 09/07/22 17:50 92 H 24 122/63 93 L 09/07/22 17:24 90 24 92 L Pain Assessment - Last Documented Pain Intensity 3 Intake and Output: Intake & Output 09/06/22 09/07/22 09/08/22 09/09/22 11:59 11:59 11:59 11:59 Intake Total 880 380 Output Total 2000 Balance -1120 380 Weight 88 kg 88 kg Lab Results: Lab Results-Last 24 Hours 09/07/22 09/07/22 09/07/22 Range/Units 17:58 18:00 18:00 WBC 12.7 H (4.0-10.5) x10^3/uL RBC 3.06 L (4.1-5.6) x10^6/uL Hgb 8.5 L (12.5-18.0) g/dL Hct 27.3 L (42-50) % MCV 89.2 (78-100) fL MCH 27.8 (26-32) pg MCHC 31.1 L (32-36) g/dL RDW 14.0 (11.5-14.0) % Plt Count 295 (150-450) x10^3/uL MPV 8.2 (7.5-11.0) fL Gran % 77.3 H (36.0-66.0) % Immature Gran % (Auto) 0.6 H (0.00-0.4) % Nucleat RBC Rel Count 0.0 (0.00-0.1) % Eos # (Auto) 0.01 (0-0.5) x10^3/uL Immature Gran # (Auto) 0.08 H (0.00-0.03) x10^3u/L Absolute Lymphs (auto) 1.68 (1.0-4.6) x10^3/uL Absolute Monos (auto) 1.09 (0.0-1.3) x10^3/uL Absolute Nucleated RBC 0.00 (0.00-0.01) x10^3u/L Lymphocytes % 13.2 L (24.0-44.0) % Monocytes % 8.6 (0.0-12.0) % Eosinophils % 0.1 (0.00-5.0) % Basophils % 0.2 (0.0-0.4) % Absolute Granulocytes 9.83 H (1.4-6.9) x10^3/uL Basophils # 0.02 (0-0.4) x10^3/uL Sodium (137-145) mmol/L Potassium (3.5-5.1) mmol/L Chloride (98-107) mmol/L Carbon Dioxide (22-30) mmol/L Anion Gap (5-15) MEQ/L BUN (9-20) mg/dL Creatinine (0.66-1.25) mg/dL Estimated GFR ML/MIN Glucose (74-106) mg/dL Lactic Acid 1.2 (0.4-2.0) Calcium (8.4-10.2) mg/dL Magnesium (1.6-2.3) mg/dL Total Bilirubin (0.2-1.3) mg/dL AST (17-59) U/L ALT (0-50) U/L Alkaline Phosphatase (38-126) U/L Troponin I 0.016 (0.000-0.034) ng/mL NT-Pro-B Natriuret Pep (<300) pg/mL Serum Total Protein (6.3-8.2) g/dL Albumin (3.5-5.0) g/dL Prealbumin (17.6-36.0) mg/dL Procalcitonin (0.030-0.080) ng/mL Urine Color (Yellow) Urine Appearance (Clear) Urine pH (4.6-8.0) Ur Specific [place] (1.005-1.030) Urine Protein (Negative) Urine Glucose (UA) (Negative) mg/dL Urine Ketones (Negative) Urine Blood (Negative) Urine Nitrite (Negative) Urine Bilirubin (Negative) Urine Urobilinogen (0.2) mg/dL Ur Leukocyte Esterase (Negative) U Hyaline Cast (Auto) (0-2) /LPF Urine Microscopic RBC (0-5) /HPF Urine Microscopic WBC (0-5) /HPF Ur Epithelial Cells (None Seen) /HPF Urine Bacteria (None Seen) /HPF Urine Culture Reflexed (NO) 09/07/22 09/07/22 09/07/22 Range/Units 18:00 18:00 18:10 WBC (4.0-10.5) x10^3/uL RBC (4.1-5.6) x10^6/uL Hgb (12.5-18.0) g/dL Hct (42-50) % MCV (78-100) fL MCH (26-32) pg MCHC (32-36) g/dL RDW (11.5-14.0) % Plt Count (150-450) x10^3/uL MPV (7.5-11.0) fL Gran % (36.0-66.0) % Immature Gran % (Auto) (0.00-0.4) % Nucleat RBC Rel Count (0.00-0.1) % Eos # (Auto) (0-0.5) x10^3/uL Immature Gran # (Auto) (0.00-0.03) x10^3u/L Absolute Lymphs (auto) (1.0-4.6) x10^3/uL Absolute Monos (auto) (0.0-1.3) x10^3/uL Absolute Nucleated RBC (0.00-0.01) x10^3u/L Lymphocytes % (24.0-44.0) % Monocytes % (0.0-12.0) % Eosinophils % (0.00-5.0) % Basophils % (0.0-0.4) % Absolute Granulocytes (1.4-6.9) x10^3/uL Basophils # (0-0.4) x10^3/uL Sodium 132 L (137-145) mmol/L Potassium 3.5 (3.5-5.1) mmol/L Chloride 93 L (98-107) mmol/L Carbon Dioxide 29 (22-30) mmol/L Anion Gap 14.2 (5-15) MEQ/L BUN 26 H (9-20) mg/dL Creatinine 1.92 H (0.66-1.25) mg/dL Estimated GFR 35.6 ML/MIN Glucose 123 H (74-106) mg/dL Lactic Acid (0.4-2.0) Calcium 8.1 L (8.4-10.2) mg/dL Magnesium 1.6 (1.6-2.3) mg/dL Total Bilirubin 1.30 (0.2-1.3) mg/dL AST 21 (17-59) U/L ALT 21 (0-50) U/L Alkaline Phosphatase 76 (38-126) U/L Troponin I (0.000-0.034) ng/mL NT-Pro-B Natriuret Pep 3230 (<300) pg/mL Serum Total Protein 6.6 (6.3-8.2) g/dL Albumin 3.1 L (3.5-5.0) g/dL Prealbumin (17.6-36.0) mg/dL Procalcitonin 0.339 H (0.030-0.080) ng/mL Urine Color Yellow (Yellow) Urine Appearance Turbid A (Clear) Urine pH 7.0 (4.6-8.0) Ur Specific [place] 1.010 (1.005-1.030) Urine Protein 300 A (Negative) Urine Glucose (UA) Negative (Negative) mg/dL Urine Ketones Negative (Negative) Urine Blood Moderate A (Negative) Urine Nitrite Negative (Negative) Urine Bilirubin Negative (Negative) Urine Urobilinogen 1.0 A (0.2) mg/dL Ur Leukocyte Esterase Large A (Negative) U Hyaline Cast (Auto) NONE SEEN (0-2) /LPF Urine Microscopic RBC 0-2 (0-5) /HPF Urine Microscopic WBC >100 A (0-5) /HPF Ur Epithelial Cells None Seen (None Seen) /HPF Urine Bacteria Few A (None Seen) /HPF Urine Culture Reflexed YES (NO) 09/07/22 09/08/22 09/08/22 Range/Units 21:31 02:17 02:17 WBC 12.0 H (4.0-10.5) x10^3/uL RBC 2.68 L (4.1-5.6) x10^6/uL Hgb 7.6 L (12.5-18.0) g/dL Hct 24.2 L (42-50) % MCV 90.3 (78-100) fL MCH 28.4 (26-32) pg MCHC 31.4 L (32-36) g/dL RDW 14.2 H (11.5-14.0) % Plt Count 263 (150-450) x10^3/uL MPV 8.3 (7.5-11.0) fL Gran % 75.3 H (36.0-66.0) % Immature Gran % (Auto) 0.7 H (0.00-0.4) % Nucleat RBC Rel Count 0.0 (0.00-0.1) % Eos # (Auto) 0.04 (0-0.5) x10^3/uL Immature Gran # (Auto) 0.08 H (0.00-0.03) x10^3u/L Absolute Lymphs (auto) 1.90 (1.0-4.6) x10^3/uL Absolute Monos (auto) 0.91 (0.0-1.3) x10^3/uL Absolute Nucleated RBC 0.00 (0.00-0.01) x10^3u/L Lymphocytes % 15.8 L (24.0-44.0) % Monocytes % 7.6 (0.0-12.0) % Eosinophils % 0.3 (0.00-5.0) % Basophils % 0.3 (0.0-0.4) % Absolute Granulocytes 9.07 H (1.4-6.9) x10^3/uL Basophils # 0.04 (0-0.4) x10^3/uL Sodium (137-145) mmol/L Potassium (3.5-5.1) mmol/L Chloride (98-107) mmol/L Carbon Dioxide (22-30) mmol/L Anion Gap (5-15) MEQ/L BUN (9-20) mg/dL Creatinine (0.66-1.25) mg/dL Estimated GFR ML/MIN Glucose (74-106) mg/dL Lactic Acid (0.4-2.0) Calcium (8.4-10.2) mg/dL Magnesium (1.6-2.3) mg/dL Total Bilirubin (0.2-1.3) mg/dL AST (17-59) U/L ALT (0-50) U/L Alkaline Phosphatase (38-126) U/L Troponin I 0.018 0.018 (0.000-0.034) ng/mL NT-Pro-B Natriuret Pep (<300) pg/mL Serum Total Protein (6.3-8.2) g/dL Albumin (3.5-5.0) g/dL Prealbumin (17.6-36.0) mg/dL Procalcitonin (0.030-0.080) ng/mL Urine Color (Yellow) Urine Appearance (Clear) Urine pH (4.6-8.0) Ur Specific [place] (1.005-1.030) Urine Protein (Negative) Urine Glucose (UA) (Negative) mg/dL Urine Ketones (Negative) Urine Blood (Negative) Urine Nitrite (Negative) Urine Bilirubin (Negative) Urine Urobilinogen (0.2) mg/dL Ur Leukocyte Esterase (Negative) U Hyaline Cast (Auto) (0-2) /LPF Urine Microscopic RBC (0-5) /HPF Urine Microscopic WBC (0-5) /HPF Ur Epithelial Cells (None Seen) /HPF Urine Bacteria (None Seen) /HPF Urine Culture Reflexed (NO) 09/08/22 Range/Units 02:17 WBC (4.0-10.5) x10^3/uL RBC (4.1-5.6) x10^6/uL Hgb (12.5-18.0) g/dL Hct (42-50) % MCV (78-100) fL MCH (26-32) pg MCHC (32-36) g/dL RDW (11.5-14.0) % Plt Count (150-450) x10^3/uL MPV (7.5-11.0) fL Gran % (36.0-66.0) % Immature Gran % (Auto) (0.00-0.4) % Nucleat RBC Rel Count (0.00-0.1) % Eos # (Auto) (0-0.5) x10^3/uL Immature Gran # (Auto) (0.00-0.03) x10^3u/L Absolute Lymphs (auto) (1.0-4.6) x10^3/uL Absolute Monos (auto) (0.0-1.3) x10^3/uL Absolute Nucleated RBC (0.00-0.01) x10^3u/L Lymphocytes % (24.0-44.0) % Monocytes % (0.0-12.0) % Eosinophils % (0.00-5.0) % Basophils % (0.0-0.4) % Absolute Granulocytes (1.4-6.9) x10^3/uL Basophils # (0-0.4) x10^3/uL Sodium 135 L (137-145) mmol/L Potassium 3.2 L (3.5-5.1) mmol/L Chloride 94 L (98-107) mmol/L Carbon Dioxide 33 H (22-30) mmol/L Anion Gap 11.5 (5-15) MEQ/L BUN 24 H (9-20) mg/dL Creatinine 1.86 H (0.66-1.25) mg/dL Estimated GFR 37.0 ML/MIN Glucose 101 (74-106) mg/dL Lactic Acid (0.4-2.0) Calcium 7.7 L (8.4-10.2) mg/dL Magnesium (1.6-2.3) mg/dL Total Bilirubin 1.00 (0.2-1.3) mg/dL AST 18 (17-59) U/L ALT 17 (0-50) U/L Alkaline Phosphatase 66 (38-126) U/L Troponin I (0.000-0.034) ng/mL NT-Pro-B Natriuret Pep (<300) pg/mL Serum Total Protein 5.2 L (6.3-8.2) g/dL Albumin 2.5 L (3.5-5.0) g/dL Prealbumin 6.24 L (17.6-36.0) mg/dL Procalcitonin (0.030-0.080) ng/mL Urine Color (Yellow) Urine Appearance (Clear) Urine pH (4.6-8.0) Ur Specific [place] (1.005-1.030) Urine Protein (Negative) Urine Glucose (UA) (Negative) mg/dL Urine Ketones (Negative) Urine Blood (Negative) Urine Nitrite (Negative) Urine Bilirubin (Negative) Urine Urobilinogen (0.2) mg/dL Ur Leukocyte Esterase (Negative) U Hyaline Cast (Auto) (0-2) /LPF Urine Microscopic RBC (0-5) /HPF Urine Microscopic WBC (0-5) /HPF Ur Epithelial Cells (None Seen) /HPF Urine Bacteria (None Seen) /HPF Urine Culture Reflexed (NO) Radiology Exams: Radiology Procedures Category Date Time Status CHEST 1 VIEW (PORTABLE) Stat Exams 09/07/22 16:58 Completed HEAD WITHOUT CONTRAST [CT] Stat Exams 09/07/22 16:58 Completed Multi-Disciplinary Progress Notes: Multi-Disciplinary Progress Notes 09/08/22 12:28 Case Management Note by Marge Murdock S/Emily NEPHEW MARVIN- PATIENT HAS ASKED THAT WE S/W HIM SEVERAL TIMES- HE WAS NOTIFIED THAT PATIENT WILL BE STAYING HERE ANOTHER NIGHT AND D/T NEEDING PRECERT TO RETURN HE WILL LIKELY BE HERE THRU THE WEEKEND. PATIENT HAS MENTIONED WANTING CHANGE FACILITIES WELL. SINCE PATIENT'S AUTH AT [facility] WILL BE OVER THE WEEKEND, THIS CAN BE CONSIDERED SUNDAY BEFORE [facility] ATTEMPTS TO GET AUTH AGAIN. MARVIN PLANS TO TALK WITH PATIENT ABOUT THAT THIS WEEK. MESSAGE LEFT FOR [facility] NOTIFYING HER THAT PATIENT WILL STAY AGAIN OVERNIGHT Initialized on 09/08/22 12:28 - END OF NOTE 09/08/22 10:31 Case Management Note by Marge Murdock S/W DEIRDA AT [facility]- PATIENT THERE UNDER HIS [employer]ET[employer]- SHE REPORTS LONG PATIENT RETURNS TO [place] TODAY- NO NEW AUTH IS NEEDED AT THIS TIME. IF PATIENT DOES NOT RETURN TODAY 09/08- PATIENT WILL NEED TO STAY THRU THE WEEKEND BECAUSE A NEW AUTH WILL NEED TO BE STARTED BY FACILITY SUNDAY AM Initialized on 09/08/22 10:31 - END OF NOTE Assessment/Plan (1) Acute renal failure Current Visit: Yes Status: Acute Assessment & Plan: Continue IV fluids. Creatinine improved but prior baseline in April 2021 was 0.83 (2) UTI (urinary tract infection) Current Visit: Yes Status: Acute Assessment & Plan: Continue IV antibiotics and follow culture. Likely will need a total 2 week course due to complicated UTI with encephalopathy. May benefit from outpatient urology referral. Code(s): N39.0 - URINARY TRACT INFECTION, SITE NOT SPECIFIED (3) Altered mental status Current Visit: Yes Status: Acute Assessment & Plan: Improving. Altered mental status is likely acute metabolic encephalopathy as a result of acute kidney injury and acute urinary tract infection. Code(s): R41.82 - ALTERED MENTAL STATUS, UNSPECIFIED Telemedicine Encounter - Telemedicine Encounter Telemedicine Encounter: The entirety of this encounter was performed via Telemedicine"
[2022-09-08] MEDS: ROCEPHIN 1 Gm-D5w 50 ml Bag** 1 G/50 ML IVPB IV SCH (18:05)
[2022-09-08] MEDS: TYLENOL 325 MG PO PRN (18:33)
[2022-09-08] MEDS ORDERED: ZOCOR 20MG PO SCH (22:00)
[2022-09-08] MEDS ORDERED: NON-FORMULARY ITEM (Atorvastatin Calcium [Atorvastatin Calcium] 80 MG Tablet) PO SCH (22:00)
[2022-09-08] MEDS ORDERED: AMITRIPTYLINE 25 MG TABLET PO SCH (22:00)
[2022-09-08] MEDS ORDERED: LIPITOR 40MG PO SCH (22:00)
[2022-09-09 07:12] LABS: Absolute Neutrophil Ct (ANC) 7.39 x10^3/uL (1.4-6.9); BASOPHIL % 0.6 % (0.0-0.4); Basophil (Absolute #) 0.06 x10^3/uL (0-0.4); Eosinophil % 4.3 % (0.00-5.0); Eosinophil (Absolute #) 0.43 x10^3/uL (0-0.5); Hematocrit 24.1 % (42-50); Hemoglobin 7.6 g/dL (12.5-18.0); IMMATURE GRAN # 0.08 x10^3u/L (0.00-0.03); IMMATURE GRAN % 0.8 % (0.00-0.4); Lymphocyte (Absolute #) 1.47 x10^3/uL (1.0-4.6); Lymphocytes % 14.8 % (24.0-44.0); Mean Cell Volume 90.6 fL (78-100); Mean Corpuscular Hemoglobin 28.6 pg (26-32); Mean Corpuscular Hgb Concent. 31.5 g/dL (32-36); Mean Platelet Volume 8.7 fL (7.5-11.0); Monocyte (Absolute #) 0.53 x10^3/uL (0.0-1.3); Monocytes % 5.3 % (0.0-12.0); Neutrophil % 74.2 % (36.0-66.0); Platelet Count 260 x10^3/uL (150-450); Red Blood Count 2.66 x10^6/uL (4.1-5.6); Red Cell Distribution Width 14.3 % (11.5-14.0)
[2022-09-09] MEDS: AMITRIPTYLINE 25 MG TABLET PO SCH ×2 (08:26→21:05)
[2022-09-09] MEDS: NYSTOP 30 GM CREAM TOP SCH ×3 (08:27→21:05)
[2022-09-09] MEDS: Eucerin Lotion (HYDROCERIN) TP SCH ×3 (08:28→21:05)
[2022-09-09] MEDS: Xalatan OP SCH ×2 (09:32→21:06)
[2022-09-09] MEDS: ECOTRIN 81 MG PO SCH (09:32)
[2022-09-09] MEDS: Protonix 40MG Tablet PO SCH ×3 (09:32→21:06)
[2022-09-09] MEDS: MAG-OX 400 PO SCH (09:32)
[2022-09-09] MEDS: Acidophilus TABLET PO SCH (09:32)
[2022-09-09] MEDS: ENOXAPARIN SODIUM SQ SCH (09:33)
[2022-09-09] MEDS: ZOCOR 20MG PO SCH ×2 (18:00→21:06)
[2022-09-09] MEDS: ROCEPHIN 1 Gm-D5w 50 ml Bag** 1 G/50 ML IVPB IV SCH (18:05)
[2022-09-09] MEDS: Sodium Chloride 0.9% 1000 ML 1,000 ML IV SCH (19:22)
[2022-09-10] MEDS: Sodium Chloride 0.9% 1000 ML 1,000 ML IV SCH (04:59)
[2022-09-10] MEDS: NYSTOP 30 GM CREAM TOP SCH ×2 (09:49→22:01)
[2022-09-10] MEDS: Eucerin Lotion (HYDROCERIN) TP SCH ×2 (09:50→22:04)
[2022-09-10] MEDS: ENOXAPARIN SODIUM SQ SCH (09:51)
[2022-09-10] MEDS: MAG-OX 400 PO SCH (09:51)
[2022-09-10] MEDS: TYLENOL 325 MG PO PRN (09:51)
[2022-09-10] MEDS: ECOTRIN 81 MG PO SCH (09:51)
[2022-09-10] MEDS: Acidophilus TABLET PO SCH (09:51)
[2022-09-10] MEDS: Protonix 40MG Tablet PO SCH ×2 (09:51→22:00)
[2022-09-10] MEDS: ROCEPHIN 1 Gm-D5w 50 ml Bag** 1 G/50 ML IVPB IV SCH (18:09)
[2022-09-10] MEDS: DUONEB 0.5-3 MG/3 ml Neb IH PRN (21:37)
[2022-09-10] MEDS: ZOCOR 20MG PO SCH (22:00)
[2022-09-10] MEDS: AMITRIPTYLINE 25 MG TABLET PO SCH (22:00)
[2022-09-10] MEDS: Xalatan OP SCH (22:00)
[2022-09-11] MEDS: Sodium Chloride 0.9% 1000 ML 1,000 ML IV SCH ×2 (02:25→11:52)
[2022-09-11 05:32] LABS: ANION GAP 9.6 MEQ/L (5-15); BLOOD UREA NITROGEN 10 mg/dL (9-20); CHLORIDE 106 mmol/L (98-107); Calcium 7.3 mg/dL (8.4-10.2); Carbon Dioxide 28 mmol/L (22-30); Creatinine 1 1.03 mg/dL (0.66-1.25); EST GLOMERULAR FILTRATION RATE > 60.0 ML/MIN; Glucose 97 mg/dL (74-106); Potassium 3.1 mmol/L (3.5-5.1); SODIUM 140 mmol/L (137-145)
[2022-09-11 06:12] LABS: Hematocrit 22.9 % (42-50); Hemoglobin 7.1 g/dL (12.5-18.0); Mean Cell Volume 90.5 fL (78-100); Mean Corpuscular Hemoglobin 28.1 pg (26-32); Mean Platelet Volume 8.1 fL (7.5-11.0); Platelet Count 226 x10^3/uL (150-450); Red Blood Count 2.53 x10^6/uL (4.1-5.6); Red Cell Distribution Width 14.2 % (11.5-14.0); White Blood Count 8.2 x10^3/uL (4.0-10.5)
--- NOTE | 2022-09-11 06:14 | PCM.NOTE ---
Date and Time: 09/09/22 11:12 Subjective Assessment: Family at bedside, patient is more alert, no new complaints, feeilng better; leg pain - Review of Systems Eyes: No Symptoms Ears, Nose, & Throat: No Symptoms Respiratory: No Symptoms Cardiac: No Symptoms Abdominal/Gastrointestinal: No Symptoms Genitourinary Symptoms: No Symptoms Objective Exam Neurologic Exam: alert, cooperative Wound Assessment: Skin/Wound Assessment Wound/Incision Assessment Start: 09/07/22 21:29 Text: Status: Active Freq: Q6H Protocol: Document 09/11/22 02:00 AB (Rec: 09/11/22 02:20 AB [id number]) Wound/Incision Assessment right buttock Wound Assessment Shift Assessment Wound Type Abrasion Wound Stage Non Pressure Wound Dressing Status Dry & Intact Drainage Amount None Drainage Odor None/Absent General Appearance Open to air,Clean/Dry Wound Bed Greatest Portion Red (Granulation) Surrounding Tissue [place] Wound Photo Photo Taken Yes Date: 09/07/22 Time: 20:00 Neck Exam: normal inspection Respiratory Exam: normal breath sounds Cardiovascular Exam: regular rate/rhythm, normal heart sounds Gastrointestinal/Abdomen Exam: soft OBJECTIVE DATA Vital Signs: Vital Signs - 24 hr Temp Pulse Resp BP Pulse Ox 09/11/22 04:00 97.5 F 95 H 18 141/66 94 L 09/10/22 23:40 97.3 F 97 H 24 139/65 95 09/10/22 21:37 87 18 92 L 09/10/22 20:00 97.3 F 96 H 28 H 172/84 95 09/10/22 16:00 97.1 F 91 H 17 168/85 95 09/10/22 12:00 97.3 F 100 H 17 145/67 96 09/10/22 08:00 97.1 F 91 H 18 133/78 94 L 09/10/22 07:59 91 H 17 97 Pain Assessment - Last Documented Pain Intensity 0 Pain Scale Used 0-10 Pain Scale Intake and Output: Intake & Output 09/08/22 09/09/22 09/10/22 09/11/22 11:59 11:59 11:59 11:59 Intake Total 580 806 2234 3196 Output Total 1999 506 1450 1625 Balance -9753 541 5212 1571 Weight 88 kg 90.5 kg 93 kg 93.5 kg Lab Results: Lab Results-Last 24 Hours 09/11/22 Range/Units 04:45 Sodium 140 (137-145) mmol/L Potassium 3.1 L (3.5-5.1) mmol/L Chloride 106 (98-107) mmol/L Carbon Dioxide 28 (22-30) mmol/L Anion Gap 9.6 (5-15) MEQ/L BUN 10 (9-20) mg/dL Creatinine 1.03 (0.66-1.25) mg/dL Estimated GFR > 60.0 ML/MIN Glucose 97 (74-106) mg/dL Calcium 7.3 L (8.4-10.2) mg/dL Assessment/Plan (1) Acute renal failure Current Visit: Yes Status: Acute Assessment & Plan: (1) Acute renal failure Current Visit: Yes Status: Acute Assessment & Plan: Continue IV fluids. Creatinine improved but prior baseline in April 2021 was 0.83 (2) UTI (urinary tract infection) Current Visit: Yes Status: Acute Assessment & Plan: Continue IV antibiotics and follow culture. Likely will need a total 2 week course due to complicated UTI with encephalopathy. May benefit from outpatient urology referral. Code(s): N39.0 - URINARY TRACT INFECTION, SITE NOT SPECIFIED (3) Altered mental status Current Visit: Yes Status: Acute Assessment & Plan: Improving. Altered mental status is likely acute metabolic encephalopathy as a result of acute kidney injury and acute urinary tract infection. Code(s): R41.82 - ALTERED MENTAL STATUS, UNSPECIFIED Telemedicine Encounter - Telemedicine Encounter Telemedicine Encounter: The entirety of this encounter was performed via Telemedicine"
--- NOTE | 2022-09-11 06:15 | PCM.NOTE ---
Date and Time: 09/10/22 12:14 Subjective Assessment: No new complaints, perked up even more - Review of Systems Eyes: No Symptoms Ears, Nose, & Throat: No Symptoms Respiratory: No Symptoms Cardiac: No Symptoms Abdominal/Gastrointestinal: No Symptoms Genitourinary Symptoms: No Symptoms Musculoskeletal: No Symptoms Skin: No Symptoms Objective Exam Neurologic Exam: alert Skin Exam: normal color Wound Assessment: Skin/Wound Assessment Wound/Incision Assessment Start: 09/07/22 21:29 Text: Status: Active Freq: Q6H Protocol: Document 09/11/22 02:00 AB (Rec: 09/11/22 02:20 AB [id number]) Wound/Incision Assessment right buttock Wound Assessment Shift Assessment Wound Type Abrasion Wound Stage Non Pressure Wound Dressing Status Dry & Intact Drainage Amount None Drainage Odor None/Absent General Appearance Open to air,Clean/Dry Wound Bed Greatest Portion Red (Granulation) Surrounding Tissue [place] Wound Photo Photo Taken Yes Date: 09/07/22 Time: 20:00 Neck Exam: normal inspection Respiratory Exam: normal breath sounds Cardiovascular Exam: regular rate/rhythm, normal heart sounds Gastrointestinal/Abdomen Exam: soft OBJECTIVE DATA Vital Signs: Vital Signs - 24 hr Temp Pulse Resp BP Pulse Ox 09/11/22 04:00 97.5 F 95 H 18 141/66 94 L 09/10/22 23:40 97.3 F 97 H 24 139/65 95 09/10/22 21:37 87 18 92 L 09/10/22 20:00 97.3 F 96 H 28 H 172/84 95 09/10/22 16:00 97.1 F 91 H 17 168/85 95 09/10/22 12:00 97.3 F 100 H 17 145/67 96 09/10/22 08:00 97.1 F 91 H 18 133/78 94 L 09/10/22 07:59 91 H 17 97 Pain Assessment - Last Documented Pain Intensity 0 Pain Scale Used 0-10 Pain Scale Intake and Output: Intake & Output 09/08/22 09/09/22 09/10/22 09/11/22 11:59 11:59 11:59 11:59 Intake Total 739 203 9063 3196 Output Total 1999 635 1450 1625 Balance -4659 692 0933 1571 Weight 88 kg 90.5 kg 93 kg 93.5 kg Lab Results: Lab Results-Last 24 Hours 09/11/22 Range/Units 04:45 Sodium 140 (137-145) mmol/L Potassium 3.1 L (3.5-5.1) mmol/L Chloride 106 (98-107) mmol/L Carbon Dioxide 28 (22-30) mmol/L Anion Gap 9.6 (5-15) MEQ/L BUN 10 (9-20) mg/dL Creatinine 1.03 (0.66-1.25) mg/dL Estimated GFR > 60.0 ML/MIN Glucose 97 (74-106) mg/dL Calcium 7.3 L (8.4-10.2) mg/dL Assessment/Plan (1) Acute renal failure Current Visit: Yes Status: Acute Assessment & Plan: (1) Acute renal failure Current Visit: Yes Status: Acute Assessment & Plan: Continue IV fluids. Creatinine improved but prior baseline in April 2021 was 0.83 (2) UTI (urinary tract infection) Current Visit: Yes Status: Acute Assessment & Plan: Continue IV antibiotics and follow culture. Likely will need a total 2 week course due to complicated UTI with encephalopathy. May benefit from outpatient urology referral. Code(s): N39.0 - URINARY TRACT INFECTION, SITE NOT SPECIFIED (3) Altered mental status Current Visit: Yes Status: Acute Assessment & Plan: Improving. Altered mental status is likely acute metabolic encephalopathy as a result of acute kidney injury and acute urinary tract infection. Code(s): R41.82 - ALTERED MENTAL STATUS, UNSPECIFIED Telemedicine Encounter - Telemedicine Encounter Telemedicine Encounter: The entirety of this encounter was performed via Telemedicine"
[2022-09-11] MEDS ORDERED: Klor Con PO ONE ×2 (08:45→11:45)
[2022-09-11] MEDS: Protonix 40MG Tablet PO SCH ×2 (10:15→22:14)
[2022-09-11] MEDS: MAG-OX 400 PO SCH (10:15)
[2022-09-11] MEDS: Acidophilus TABLET PO SCH (10:15)
[2022-09-11] MEDS: ECOTRIN 81 MG PO SCH (10:15)
[2022-09-11] MEDS: ENOXAPARIN SODIUM SQ SCH (10:15)
[2022-09-11] MEDS: NYSTOP 30 GM CREAM TOP SCH ×2 (10:15→22:10)
[2022-09-11] MEDS: Eucerin Lotion (HYDROCERIN) TP SCH ×2 (10:16→22:14)
[2022-09-11] MEDS: ROCEPHIN 1 Gm-D5w 50 ml Bag** 1 G/50 ML IVPB IV SCH (18:29)
--- NOTE | 2022-09-11 20:18 | PCM.NOTE ---
Date and Time: 09/11/222009 Subjective Assessment: No acute events overnight. Patient is much more alert today. He was able to walk today; he felt a little dyspnea, but no dizziness. He has been making good urine, although he has a Wisdom catheter in place after retention noted in the ED. However, no documentation of how much urine was retained can be found in the ED notes. Objective Exam Wound Assessment: Skin/Wound Assessment Wound/Incision Assessment Start: 09/07/22 21:29 Text: Status: Active Freq: Q6H Protocol: Document 09/11/22 14:00 ENDY (Rec: 09/11/22 15:07 ENDY [id number]) Wound/Incision Assessment right buttock Wound Assessment Shift Assessment Wound Type Abrasion Wound Stage Non Pressure Wound Dressing Status Dry & Intact Drainage Amount None Drainage Odor None/Absent General Appearance Open to air,Clean/Dry Wound Bed Greatest Portion Red (Granulation) Surrounding Tissue Chitina Wound Photo Photo Taken Yes Date: 09/07/22 Time: 20:00 Comments: GENERAL: Sitting up in chair in no acute distress NEURO: Alert, oriented x3, normal affect CV: Regular rate and rhythm, no murmurs, no edema PULM: Clear to auscultation bilaterally, no work of breathing ABD: Soft, nontender, nondistended OBJECTIVE DATA Vital Signs: Vital Signs - 24 hr Temp Pulse Resp BP Pulse Ox 09/11/22 19:20 96.9 F 98 H 16 163/77 09/11/22 19:19 98 H 18 94 L 09/11/22 16:00 97.7 F 90 17 135/76 97 09/11/22 11:32 97.5 F 111 H 17 125/55 94 L 09/11/22 07:15 76 18 92 L 09/11/22 07:12 97.1 F 88 18 137/65 96 09/11/22 04:00 97.5 F 95 H 18 141/66 94 L 09/10/22 23:40 97.3 F 97 H 24 139/65 95 09/10/22 21:37 87 18 92 L Pain Assessment - Last Documented Pain Intensity 3 Pain Scale Used 0-10 Pain Scale Intake and Output: Intake & Output 09/09/22 09/10/22 09/11/22 09/12/22 11:59 11:59 11:59 11:59 Intake Total 880 0773 3196 Output Total 450 1450 1625 Balance 430 1133 1571 Weight 90.5 kg 93 kg 93.5 kg Lab Results: Lab Results-Last 24 Hours 09/11/22 09/11/22 Range/Units 04:45 04:45 WBC 8.2 (4.0-10.5) x10^3/uL RBC 2.53 L (4.1-5.6) x10^6/uL Hgb 7.1 L (12.5-18.0) g/dL Hct 22.9 L (42-50) % MCV 90.5 (78-100) fL MCH 28.1 (26-32) pg MCHC 31.0 L (32-36) g/dL RDW 14.2 H (11.5-14.0) % Plt Count 226 (150-450) x10^3/uL MPV 8.1 (7.5-11.0) fL Sodium 140 (137-145) mmol/L Potassium 3.1 L (3.5-5.1) mmol/L Chloride 106 (98-107) mmol/L Carbon Dioxide 28 (22-30) mmol/L Anion Gap 9.6 (5-15) MEQ/L BUN 10 (9-20) mg/dL Creatinine 1.03 (0.66-1.25) mg/dL Estimated GFR > 60.0 ML/MIN Glucose 97 (74-106) mg/dL Calcium 7.3 L (8.4-10.2) mg/dL Urine culture 09/07 gram-negative rods growing, ID and Nativity pending Blood cultures 09/07 no growth to date Multi-Disciplinary Progress Notes: Multi-Disciplinary Progress Notes 09/11/22 15:16 Case Management Note by Marge Murdock DR. REPORTS PATIENT READY TO RETURN TO [facility]. S/W PATIENT- [facility]. HE IS NOT HAPPY WITH HIS CARE THERE NOR DOES HE LIKE THE BUILDING. [facility] W[facility]ES [facility]. [facility]- THEY ARE NOT IN NETWORK WITH PATIENT'S INSURANCE. PATIENT NOTIFIED. HE WOULD LIKE TO TRY [facility]. HE REQUESTED I S/W HIS SISTER, ALLEI, ABOUT IT WELL. ALLIE SAID SHE WAS FINE WITH [facility]LL. REFERRAL FAXED TO [facility]. THEY HAVE ACCEPTED AND STARTED THE AUTH PROCESS. CALLED LANCE AT THE [facility] TO NOTIFY HER- NO ANSWER- LM Initialized on 09/11/22 15:16 - END OF NOTE 09/11/22 12:45 OT Plan of Care Note by Brenna Rees OT Eval OT Inpatient Eval and POC Start: 09/11/22 09:38 Freq: ONCE Status: Active Protocol: Created 09/11/22 09:38 WB (Rec: 09/11/22 09:38 WB [id number]) Document 09/11/22 09:50 KA (Rec: 09/11/22 10:01 KA [id number]) OT Evaluation Subjective SCREEN COMPLETED PRIOR TO EVALUATION: INDICATIONS FOR OT EVALUATION JULIAN REPORTS FEELING BETTER SINCE ER ADMISSION WITH IMPROVED "MENTAL CLARITY", BUT CONTINUES TO FEEL WEAKNESS AND INSTABILITY. HE IS APPRECIATIVE TO NURSING STAFF THAT HAVE ASSISTED HIM WITH TRANSFERS IN THE MORNING AND EVENING WHILE BEING IN THE HOSPITAL. Pertinent Past Medical History HYPERTENSION, GERD, HYPERLIPIDEMIA Prior Level of Function JULIAN REPORTS PARTICIPATING IN ALF REHAB FOR APPROXIMATELY 12 WEEKS WHERE HE ENGAGES IN PT AND OT THROUGHOUT THE WEEK. HE REPORTS THAT NURSING STAFF ASSIST WITH TOILETING, DRESSING, AND BATHING INTERMITTENTLY BUT TRIES TO COMPLETE MOD INDEP. HE REPORTS DIFFICULTY WITH CUTTING UP FOOD DUE TO BILATERAL HAND WEAKNESS AND ARTHRITIS. PRIOR TO [facility]: HE LIVES WITH SISTER IN 1 LEVEL HOUSE WITH RAMP ENTRANCE, [facility] NURSING 3X/WEEK, HE WAS INDEPENDENT WITH SPONGE BATHING, USED WALK IN SHOWER ( OCCASIONALLY) WITH USE OF SHOWER SEAT, BSC OVER TOILET FOR HEIGHT AND HANDLS, UTILIZES A/E FOR LB DRESSING, AND UTILIZED FWW FOR MOBILITY. HE RELIED ON SISTER FOR LAUNDRY, MEALS, AND TRANSPORTATION. Equipment at Home Prior to Admission Walker,Commode,Field Enumerator,Sock- aid,Long handled shoe horn, Raised Toilet Seat,Shower Chair Home Setup [id number],Sponge Bath, Elevated Height Toilet,Grab Bar,Ramp Comment HOSPITAL BED Date 09/11/22 Feeding WFL Comment SET UP ASSIST (ASSISTANCE REQURIED FOR CUTTING FOOD). Grooming Impaired Comment SET UP ASSIST: WASHING FACE SHAVING: MOD ASSIST (SECONDARY TO ARTHRITIS AND WEAKNESS IN UE) Bathing Impaired Comment MAX ASSIST Dressing Impaired Comment UB: MIN ASSIST (MAX ASSIST FOR BUTTONING) LB: MAX ASSIST Toileting Impaired Comment WISDOM CATHETER PRESENT IADLS (If indicated) Homemaking,etc Impaired Bed Mobility Impaired Toilet Transfers Impaired Comment MOD ASSIST Functional Transfers Impaired Comment MOD ASSIST Range of Motion Impaired Comment RIGHT SHOULDER ROM LIMITED (AT BASELINE DUE TO RTC INJURY AND ARTHRITIS): APPROXIMATELY 60 DEGREES OF FLEXION LEFT SHOULDER: AT BASELINE DUE TO PREVIOUS SURGERY ARTHRITIC CHANGES IN BILATEARL HANDS Coordination DIGIT OPPOSITION: WFL Functional Strength IMPAIRED -DEFERRED SHOULDER MMT TEST DUE TO LIMITED ROM AND IV PLACEMENT IN LEFT ANTERIOR SHOULDER -DECREASED BILATERAL UNEMPLOYMENT SPECIALIST STRENGTH (LEFT HAND STRONGER THEN RIGHT HAND). -DIFFICULTY WITH MANUAL DEXTERITY DUE TO WEAKNESS ( CUTTING UP FOOD) Functional Endurance SEATED (FAIR +) STANDING (POOR +)- FATIGUE WITH 1 MINUTE OF STATIC STANDING. Cognition ALERT AND ORIENTED TO NAME, LOCATION, YEAR (SAID IT WAS SUNDAY, September BUT WITH CUE HE CORRECTED TO August) . Pain BASELINE PAIN IN BILATERAL ANKLES Objective Data/Standardized Assessment(s 0/6 ON MCCALL INDEX OF ) INDEPENDENCE IN ADLS WHICH INDICATES PATIENT IS VERY DEPENDENT IN ADLS OT Plan Of Care Date of Evaluation 09/11/22 Treatment Diagnosis AMS, UTI, ACUTE RENAL FAILURE Precaution/Orders as written EVAL AND TREAT Teaching Recipient Patient Patient is Aware of Diagnosis and Yes Prognosis Patient is receptive to Plan of Care and Yes contributory towards OT goals Functional Problem List PATIENT PRESENTS WITH GENEARLIZED WEAKNESS, DECREASED ACTIVITY TOLERANCE, FINE MOTOR IMPAIREMENTS, AND POOR STABILITY/BALANCE LIMITING INDEPENDENCE WITH ADLS AND FUNCTIONAL TRANSFERS. Therapuetic Interventions ADLS, THERAPEUTIC ACTIVITY, THERAPEUTIC EXERCISE, MANUAL THERAPY, FUNCTIONAL TRANSFERS Functional Goals of Treatment 1.) PATIENT WILL COMPLETE UB ADLS/GROOMING TASKS WITH SBA WHILE IN SEATED POSITION. 2.) PATIENT WILL COMPLETE FUNCTIONAL TRANSFERS (TOILET) WITH MIN ASSIST. 3.) PATIENT WILL DEMONSTRATE INDEPENDENCE WITH ALL EDUCATION AND HEP FOR UB STRENGTHENING AND ENDURANCE. Frequency/Duration 5X/WEEK Rehabilitation Potential for Goals/ Good Barriers to Progress Discharge Recommendations/Plan RETURN TO SNF (AWAITING PA) Initialized on 09/11/22 12:45 - END OF NOTE 09/11/22 10:31 Physical Therapy Note by Toshia(Matthew#[id number])Lupe PT. WAS SEEN BY P.T. THIS A.M. 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 PT. IN BEDSIDE RECLINER UPON P.T. ARRIVAL TO ROOM. PT. ALERT AND ORIENTED TO HIS NAME AND LOCATION; THOUGHT DATE WAS 09/12. PT. AGREEABLE TO P.T. PT. REPORTS HE DID NOT SLEEP WELL LAST NIGHT. NOTED BILATERAL HANDS TREMORING/SHAKING WHICH HE REPORTS HAPPENS OCCASIONALLY. PERFORMED SIT TO STAND W/ MIN-MOD ASSIST W/ VERBAL AND TACTILE CUES TO INCREASE TRUNK AND HIP FLEXION PRIOR TO STANDING. PT. AMBULATED ~ 60' W/ RW AND MIN ASSIST. NOTED KYPHOTIC POSTURE AND SHORT STRIDE LENGTH WELL DECREASED FOOT CLEARANCE. PT. REQUIRE V.C. TO BREATHE PROPERLY WHILE WALKING AND TO IMPROVE POSTURE AND SLOW PACE. PT. IMPULSIVE AND LIMITED SAFETY AWARENESS NOTED ESPECIALLY W/ NAVIGATING TURNS. NOTED DYSPNEA DURING AND FOR ~ 1' AFTER WALKING. SATS DIFFICULT TO OBTAIN IMMEDIATELY AFTER WALK D/T TREMORING BUT FINALLY GOT 96% ON RA. PT. HAS IV AND WISDOM CATH IN PLACE. PT. ABLE TO PERFORM SEATED LE EX'S X 10 REPS OF LAQS, ANKLE PUMPS, MARCHES, HEEL SLIDES, SLRS W/ MANY V.C. FOR NASAL INSPIRATION PT. TENDS TO MOUTH BREATHE. WILL CONT. P.T. 5X/WK UNTIL D/C TO ADDRESS WEAKNESS, DECREASED ACTIVITY TOLERANCE, AND FUNCTIONAL DEFICITS. PLAN IS TO D/C BACK TO SNF TO CONT. REHAB WHEN INSURANCE PA IS OBTAINED. Initialized on 09/11/22 10:31 - END OF NOTE Assessment/Plan (1) UTI (urinary tract infection) Current Visit: Yes Status: Acute Assessment & Plan: 82-year-old M with history of hypertension, GERD, and dyslipidemia, here with acute kidney injury and acute cystitis causing toxic metabolic encephalopathy. ## Acute cystitis with pyuria on initial UA, and gram-negative rods growing in urine culture. Of note, patient also had urine retention (see below). Continue Rocephin 1 g IV daily Follow-up urine culture results ## Acute kidney injury, urine retention patient with creatinine of 1.9 on arrival, now back down to his baseline of 1.0. Unclear if this is prerenal, or perhaps related to his urine retention. Of note, [facility] staff was unable to perform straight cath for urine sample, and had to have a Wisdom placed upon arrival in the ED. Discontinue IV fluids Repeat BMP in the morning We will leave Wisdom catheter in place, and will need eventual outpatient evaluation by urology for trial of voiding ## Acute toxic metabolic encephalopathy likely secondary to acute cystitis as above. Now resolved. ## Reported COPD breathing easily here Continue PRN DuoNeb ## Anemia of chronic disease patient's baseline hemoglobin has been around 8. He is slightly below that at 7.1 today. Repeat CBC in the morning ## Hypokalemia Give KCl 40 mEq p.o. x1 today Repeat BMP in the morning CODE STATUS: Full code Prophylaxis: Lovenox 30 mg daily Diet: Mechanical soft Dispo: Can return to SNF to complete course of p.o. antibiotics. Family would like a different facility, currently pending authorization Code(s): N39.0 - URINARY TRACT INFECTION, SITE NOT SPECIFIED Telemedicine Encounter - Telemedicine Encounter Telemedicine Encounter: The entirety of this encounter was performed via Telemedicine"
[2022-09-11] MEDS: Xalatan OP SCH (22:10)
[2022-09-11] MEDS: ZOCOR 20MG PO SCH (22:12)
[2022-09-11] MEDS: AMITRIPTYLINE 25 MG TABLET PO SCH (22:12)
[2022-09-12 05:32] LABS: Mean Cell Volume 94.3 fL (78-100); Mean Corpuscular Hemoglobin 28.3 pg (26-32); Mean Platelet Volume 8.3 fL (7.5-11.0); Platelet Count 249 x10^3/uL (150-450); Red Blood Count 2.44 x10^6/uL (4.1-5.6); Red Cell Distribution Width 14.2 % (11.5-14.0); White Blood Count 7.3 x10^3/uL (4.0-10.5)
[2022-09-12 05:33] LABS: Hemoglobin 6.9 g/dL (12.5-18.0)
[2022-09-12 05:38] LABS: BLOOD UREA NITROGEN 7 mg/dL (9-20); CHLORIDE 107 mmol/L (98-107); Calcium 7.2 mg/dL (8.4-10.2); Carbon Dioxide 32 mmol/L (22-30); Creatinine 1 1.09 mg/dL (0.66-1.25); EST GLOMERULAR FILTRATION RATE > 60.0 ML/MIN; Glucose 109 mg/dL (74-106); MAGNESIUM 1.3 mg/dL (1.6-2.3); Potassium 3.2 mmol/L (3.5-5.1); SODIUM 143 mmol/L (137-145)
[2022-09-12 06:35] LABS: Hematocrit 22.2 % (42-50)
[2022-09-12 06:40] LABS: Hemoglobin 6.8 g/dL (12.5-18.0)
[2022-09-12 07:52] LABS: ABO TYPING A; Antibody Screen NEGATIVE (NEGATIVE); RH TYPING POSITIVE
[2022-09-12 07:54] LABS: CROSS MATCH (PRBC) COMPATIBLE (COMPATIBLE)
[2022-09-12] MEDS ORDERED: Sodium Chloride 0.9% 1000 ML 1,000 ML ONE (08:11)
[2022-09-12] MEDS ORDERED: Sodium Chloride 0.9% 1000 ML 1,000 ML IV SCH (08:15)
[2022-09-12] MEDS: Klor Con PO SCH ×2 (08:43→14:06)
[2022-09-12] MEDS: MAG-OX 400 PO SCH (08:44)
[2022-09-12] MEDS: Acidophilus TABLET PO SCH (10:13)
[2022-09-12] MEDS: ECOTRIN 81 MG PO SCH (10:13)
[2022-09-12] MEDS: Levofloxacin 500 MG Tablet PO SCH (10:13)
[2022-09-12] MEDS: ENOXAPARIN SODIUM SQ SCH (10:13)
[2022-09-12] MEDS: NYSTOP 30 GM CREAM TOP SCH (10:13)
[2022-09-12] MEDS: Protonix 40MG Tablet PO SCH (10:13)
[2022-09-12] MEDS: Eucerin Lotion (HYDROCERIN) TP SCH (10:14)
[2022-09-12] MEDS: MAGNESIUM SULF 2 G/50 ML BAG 2 GM/50 ML PIGGYBACK IV SCH ×2 (11:08→11:50)
[2022-09-12 14:52] LABS: MAGNESIUM 2.3 mg/dL (1.6-2.3); Potassium 3.9 mmol/L (3.5-5.1)
[2022-09-12 19:40] LABS: Hematocrit 28.5 % (42-50)
[2022-09-12 19:51] LABS: Hemoglobin 8.6 g/dL (12.5-18.0)
--- NOTE | 2022-09-12 22:48 | PCM.NOTE ---
Date and Time: 09/12/222243 Subjective Assessment: No acute events overnight. Patient continues to have baseline mental status. He is feeling well overall, although does notice some weakness compared to his baseline activity. Denies chest pain, but has some dyspnea with exertion. Objective Exam Wound Assessment: Skin/Wound Assessment Wound/Incision Assessment Start: 09/07/22 21:29 Text: Status: Active Freq: Q6H Protocol: Document 09/12/22 14:00 ENDY (Rec: 09/12/22 14:35 ENDY [id number]) Wound/Incision Assessment right buttock Wound Assessment Shift Assessment Wound Type Abrasion Wound Stage Deep Tissue Injury Dressing Status Dry & Intact,Drainage circled Drainage Amount None Drainage Odor None/Absent General Appearance Open to air,Clean/Dry Wound Bed Greatest Portion Red (Granulation),Shiny,Pale Leonard,Dusky Red Wound Bed Lesser Portion Red (Granulation),Shiny,Pale Leonard,Blanched/Dull Surrounding Tissue Leonard Wound Photo Photo Taken Yes Date: 09/07/22 Comments: GENERAL: Sitting up in chair in no acute distress NEURO: Alert, oriented x3, normal affect CV: Regular rate and rhythm, no murmurs, no edema PULM: Clear to auscultation bilaterally, no work of breathing ABD: Soft, nontender, nondistended OBJECTIVE DATA Vital Signs: Vital Signs - 24 hr Temp Pulse Resp BP Pulse Ox 09/12/22 20:00 97.3 F 67 18 166/76 96 09/12/22 19:31 78 20 93 L 09/12/22 19:13 93 L 09/12/22 16:00 96.9 F 99 H 18 144/67 94 L 09/12/22 12:00 97.4 F 90 16 160/77 97 09/12/22 07:41 96.6 F 81 16 151/66 94 L 09/12/22 07:18 94 L 09/11/22 23:32 97.1 F 96 H 16 136/81 91 L Pain Assessment - Last Documented Pain Intensity 3 Pain Scale Used 0-10 Pain Scale Intake and Output: Intake & Output 09/10/22 09/11/22 09/12/22 09/13/22 11:59 11:59 11:59 11:59 Intake Total 0533 3196 180 600 Output Total 1450 9106 057 6687 Balance 1133 7321 -770 -1075 Weight 93 kg 93.5 kg Lab Results: Lab Results-Last 24 Hours 09/12/22 09/12/22 09/12/22 Range/Units 05:23 05:23 06:25 WBC 7.3 (4.0-10.5) x10^3/uL RBC 2.44 L (4.1-5.6) x10^6/uL Hgb 6.9 L* (12.5-18.0) g/dL Hct 23.0 L (42-50) % MCV 94.3 (78-100) fL MCH 28.3 (26-32) pg MCHC 30.0 L (32-36) g/dL RDW 14.2 H (11.5-14.0) % Plt Count 249 (150-450) x10^3/uL MPV 8.3 (7.5-11.0) fL Sodium 143 (137-145) mmol/L Potassium 3.2 L (3.5-5.1) mmol/L Chloride 107 (98-107) mmol/L Carbon Dioxide 32 H (22-30) mmol/L Anion Gap 7.0 (5-15) MEQ/L BUN 7 L (9-20) mg/dL Creatinine 1.09 (0.66-1.25) mg/dL Estimated GFR > 60.0 ML/MIN Glucose 109 H (74-106) mg/dL Calcium 7.2 L (8.4-10.2) mg/dL Magnesium 1.3 L (1.6-2.3) mg/dL ABO Group A Rh Factor POSITIVE Antibody Screen NEGATIVE (NEGATIVE) Crossmatch COMPATIBLE (COMPATIBLE) 09/12/22 09/12/22 09/12/22 Range/Units 06:25 14:20 19:35 WBC (4.0-10.5) x10^3/uL RBC (4.1-5.6) x10^6/uL Hgb 6.8 L* 8.6 L D (12.5-18.0) g/dL Hct 22.2 L 28.5 L (42-50) % MCV (78-100) fL MCH (26-32) pg MCHC (32-36) g/dL RDW (11.5-14.0) % Plt Count (150-450) x10^3/uL MPV (7.5-11.0) fL Sodium (137-145) mmol/L Potassium 3.9 D (3.5-5.1) mmol/L Chloride (98-107) mmol/L Carbon Dioxide (22-30) mmol/L Anion Gap (5-15) MEQ/L BUN (9-20) mg/dL Creatinine (0.66-1.25) mg/dL Estimated GFR ML/MIN Glucose (74-106) mg/dL Calcium (8.4-10.2) mg/dL Magnesium 2.3 (1.6-2.3) mg/dL ABO Group Rh Factor Antibody Screen (NEGATIVE) Crossmatch (COMPATIBLE) Urine culture 20-30,000 CFU of Pseudomonas aeruginosa, pansensitive Multi-Disciplinary Progress Notes: Multi-Disciplinary Progress Notes 09/12/22 15:24 Physical Therapy Note by Toshia(L#[id number])Lupe PT. SEEN BY P.T. THIS P.M. REPORTS HE IS FEELING BETTER AFTER BLOOD TRANSFUSION THIS A.M. PT. IN BEDSIDE RECLINER AND AGREEABLE TO P.T. PERFORMED SIT TO STAND W/ MIN-MOD ASSIST W/ V.C TO SCOOT TO EDGE OF CHAIR AND INCREASE TRUNK AND HIP FLEXION PRIOR TO STAND. REPORTED MILD DIZZINESS W/ POSITION CHANGE. PT. AMBULATED ~50' W/ RW AND MIN ASSIST. NOTED SIGNIFICANT MOUTH BREATHING DESPITE V.C. TO PERFORM PURSED LIP BREATHING. PT. NOTED FATIGUE AND DYSPNEA W/ WALK. NOTED INCREASED UE SHAKING AFTER WALK WELL. ATTEMPTED TO GET O2 SATS W/ DYNAMAP MULTIPLE TIMES AND COULD NOT GET RELIABLE SAT. RT AND RN NOTIFIED. PT. REPORTED HE FELT OK. ABLE TO PERFORM SEATED LAQS, MARCHES, ANKLE PUMPS, AND HEEL SLIDES X 10 REPS. W/ MANY CUES FOR PROPER BREATHING. WILL CONT. P.T. 5X/WK TO PREP FOR RETURN TO REHAB. AWAITING INSURANCE PA @ THIS TIME. Initialized on 09/12/22 15:24 - END OF NOTE 09/12/22 15:18 Occupational Therapy Note by Sanjay(L#[id number]),Lupe JORDAN WAS SEEN WHILE SITTING UP IN BEDSIDE CHAIR THIS PM. HE REPORTED THAT CURRENTLY HIS GREATEST CONCERN OR NEED WAS GETTING UP AND DOWN HE STATES HE FEELS VERY WEAK. HE PERFORMED SIT TO STAND FROM CHAIR X 6 TRIALS WITH MODERATE ASSIST NEEDED THE FIRST 4 TRIALS AND MINIMAL ASSIST NEEDED THE LAST 2 TRIALS. HE REQ VERBAL CUES FOR PROPER TECHNIQUE (MOSTLY TO USE HIS HANDS AND PUSH FROM ARMRESTS HE TENDED TO WANT TO GRAB ONTO WALKER AND PULL SELF UP). HE REQ VERBAL CUES FOR DEEP BREATHING WHILE STANDING AND TOLERATED STANDING FROM 15 TO 25 SECONDS AT A TIME. HE REQ SHORT REST BREAK BETWEEN EACH STANDING TRIAL. ALSO PERFORMED BUE THERAPUETIC EXERCISES CONSISTING OF AROM WITH GRAVITY ONLY RESISTANCE (5 SETS X 15 REPS EACH). JULIAN WILL CONT TO BENEFIT FROM SKILLED OT SERVICES TO INCREASE HIS INDEPENDENCE WITH ADLS AND FUNCTIONAL MOBILITY. Initialized on 09/12/22 15:18 - END OF NOTE 09/12/22 13:45 (created 09/12/22 17:01) Case Management Note by Marge Murdock HAS RECEIVED AUTH AND WILL BE READY FOR PATIENT TOMORROW Initialized on 09/12/22 17:01 - END OF NOTE 09/12/22 10:54 Case Management Note by Marge Murdock S/W [facility] AT [facility] STILL PENDING AT THIS TIME. THEY WILL LOOK UP PASRR ON ASSESSMENT PRO- NO NEED TO DO AGAIN PRIOR TO DC. S/W PATIENT- HE CONTINUES TO PLAN TO DC TO [facility] AT TIME OF DC Initialized on 09/12/22 10:54 - END OF NOTE Assessment/Plan (1) UTI (urinary tract infection) Current Visit: Yes Status: Acute Assessment & Plan: 82-year-old M with history of hypertension, GERD, and dyslipidemia, here with acute kidney injury and acute cystitis causing toxic metabolic encephalopathy. ## Acute cystitis with pyuria on initial UA, and Pseudomonas growing in urine culture. Of note, patient also had urine retention (see below). DC Rocephin Start Levaquin 5 mg daily, will plan for 7-day course, to end on 09/18, can be completed at [facility] ## Acute kidney injury, urine retention patient with creatinine of 1.9 on arrival, now back down to his baseline of 1.0. Unclear if this is prerenal, or perhaps related to his urine retention. Of note, intermediate staff was unable to perform straight cath for urine sample, and had to have a Wiley placed upon arrival in the ED. We will leave Wiley catheter in place, and will need eventual outpatient evaluation by urology for trial of voiding ## Acute toxic metabolic encephalopathy likely secondary to acute cystitis as above. Now resolved. ## Reported COPD breathing easily here Continue PRN DuoNeb ## Anemia of chronic disease patient's baseline hemoglobin has been around 8. Today down to 6.9. Transfuse 1 unit PRBCs Repeat CBC in the morning ## Hypokalemia minimal response to repletion yesterday, likely secondary to hypomagnesemia. Give KCl 40 mEq p.o. x2 doses today Give magnesium 4 g IV x1 Repeat BMP, magnesium in the morning CODE STATUS: Full code Prophylaxis: Lovenox 30 mg daily Diet: Mechanical soft Dispo: To SNF in the morning Code(s): N39.0 - URINARY TRACT INFECTION, SITE NOT SPECIFIED Telemedicine Encounter - Telemedicine Encounter Telemedicine Encounter: The entirety of this encounter was performed via Telemedicine"
[2022-09-13] MEDS: AMITRIPTYLINE 25 MG TABLET PO SCH (00:04)
[2022-09-13] MEDS: Protonix 40MG Tablet PO SCH ×2 (00:04→09:45)
[2022-09-13] MEDS: Xalatan OP SCH (00:04)
[2022-09-13] MEDS: ZOCOR 20MG PO SCH (00:04)
[2022-09-13] MEDS: NYSTOP 30 GM CREAM TOP SCH ×2 (00:04→09:43)
[2022-09-13] MEDS: Eucerin Lotion (HYDROCERIN) TP SCH ×2 (00:05→09:44)
[2022-09-13 05:17] LABS: Hematocrit 27.9 % (42-50); Hemoglobin 8.6 g/dL (12.5-18.0); Mean Cell Volume 91.2 fL (78-100); Mean Corpuscular Hemoglobin 28.1 pg (26-32); Mean Corpuscular Hgb Concent. 30.8 g/dL (32-36); Mean Platelet Volume 8.3 fL (7.5-11.0); Platelet Count 270 x10^3/uL (150-450); Red Blood Count 3.06 x10^6/uL (4.1-5.6); Red Cell Distribution Width 14.6 % (11.5-14.0); White Blood Count 8.3 x10^3/uL (4.0-10.5)
[2022-09-13 05:44] LABS: ANION GAP 8.9 MEQ/L (5-15); BLOOD UREA NITROGEN 7 mg/dL (9-20); CHLORIDE 106 mmol/L (98-107); Calcium 7.5 mg/dL (8.4-10.2); Carbon Dioxide 30 mmol/L (22-30); Creatinine 1 1.06 mg/dL (0.66-1.25); EST GLOMERULAR FILTRATION RATE > 60.0 ML/MIN; Glucose 108 mg/dL (74-106); Potassium 3.7 mmol/L (3.5-5.1); SODIUM 142 mmol/L (137-145)
[2022-09-13 06:53] VITALS: BP 136/75; TEMP 97.5
[2022-09-13] MEDS: Levofloxacin 500 MG Tablet PO SCH (09:45)
[2022-09-13] MEDS: MAG-OX 400 PO SCH (09:45)
[2022-09-13] MEDS: ENOXAPARIN SODIUM SQ SCH (09:45)
[2022-09-13] MEDS: Acidophilus TABLET PO SCH (09:45)
[2022-09-13] MEDS: ECOTRIN 81 MG PO SCH (09:45)
--- NOTE | 2022-09-13 09:48 | PCM.DS ---
Discharge Summary Date of Admission: 09/07/22 20:31 Date of Discharge: 09/13/2022 Admitting Physician: CHUCK PITTMAN MD Primary Care Provider: AMRIK Allergies Allergies No Known Drug Allergies Allergy (Unverified 09/07/22 16:59) Hospital Summary - Hospital Course Hospital Course: 82-year-old man with history of hypertension, GERD, dyslipidemia, who was brought in from his nursing facility with acute onset of confusion and lethargy. He was found to have acute kidney injury and acute cystitis on admission. He was started on empiric Rocephin and given IV fluids. His creatinine improved to his baseline of 1.0. Urine cultures were eventually growing Pseudomonas, and he was changed to Levaquin. His mental status returned back to his baseline. Of note, he is has baseline hemoglobin around 8, which trended down slowly to 6.9. He was given 1 unit of blood during his stay, with appropriate response, with hemoglobin up to 8.6. At family request, he was arranged for a new nursing facility. He will be discharged there today to complete course of Levaquin on 09/18. Greater than 30 minutes were spent arranging discharge. - Vitals & Intake/Output Vital Signs: Vital Signs Temperature 97.5 F 09/13/22 06:52 Pulse Rate 92 H 09/13/22 06:52 Respiratory Rate 16 09/13/22 06:52 Blood Pressure 136/75 09/13/22 06:52 O2 Sat by Pulse Oximetry 91 L 09/13/22 06:52 Intake & Output: Intake & Output 09/10/22 09/11/22 09/12/22 09/13/22 11:59 11:59 11:59 11:59 Intake Total 2583 3196 180 900 Output Total 1450 8009 202 2213 Balance 1133 1571 -770 -1375 Weight 93 kg 93.5 kg 93.5 kg - Lab Result Diagrams: 09/13/22 04:00 09/13/22 04:40 Lab Results-Last 24 Hrs: Lab Results-Last 24 Hours 09/12/22 09/12/22 09/13/22 Range/Units 14:20 19:35 04:00 WBC 8.3 (4.0-10.5) x10^3/uL RBC 3.06 L (4.1-5.6) x10^6/uL Hgb 8.6 L D 8.6 L (12.5-18.0) g/dL Hct 28.5 L 27.9 L (42-50) % MCV 91.2 (78-100) fL MCH 28.1 (26-32) pg MCHC 30.8 L (32-36) g/dL RDW 14.6 H (11.5-14.0) % Plt Count 270 (150-450) x10^3/uL MPV 8.3 (7.5-11.0) fL Sodium (137-145) mmol/L Potassium 3.9 D (3.5-5.1) mmol/L Chloride (98-107) mmol/L Carbon Dioxide (22-30) mmol/L Anion Gap (5-15) MEQ/L BUN (9-20) mg/dL Creatinine (0.66-1.25) mg/dL Estimated GFR ML/MIN Glucose (74-106) mg/dL Calcium (8.4-10.2) mg/dL Magnesium 2.3 (1.6-2.3) mg/dL 09/13/22 Range/Units 04:40 WBC (4.0-10.5) x10^3/uL RBC (4.1-5.6) x10^6/uL Hgb (12.5-18.0) g/dL Hct (42-50) % MCV (78-100) fL MCH (26-32) pg MCHC (32-36) g/dL RDW (11.5-14.0) % Plt Count (150-450) x10^3/uL MPV (7.5-11.0) fL Sodium 142 (137-145) mmol/L Potassium 3.7 (3.5-5.1) mmol/L Chloride 106 (98-107) mmol/L Carbon Dioxide 30 (22-30) mmol/L Anion Gap 8.9 (5-15) MEQ/L BUN 7 L (9-20) mg/dL Creatinine 1.06 (0.66-1.25) mg/dL Estimated GFR > 60.0 ML/MIN Glucose 108 H (74-106) mg/dL Calcium 7.5 L (8.4-10.2) mg/dL Magnesium (1.6-2.3) mg/dL Micro Results-Entire Visit: Microbiology 09/07/22 18:10 Urine Culture - Final Catherized Pseudomonas Aeruginosa 09/07/22 18:00 Blood Culture - Final Blood 09/07/22 17:45 Blood Culture - Final Blood - Procedures and Test Procedures and Tests throughout Hospitalization: Therapy Orders & Screens 09/07/22 17:24 Respiratory Therapy Assessment DAILY Comment: 09/07/22 21:14 Respiratory Therapy Assessment DAILY Comment: Diagnosis: Altered mental status, acute renal failure, UTI 09/07/22 22:59 OT Screen per Nursing Assess ONCE Comment: Protocol Order Physician Instructions: Greater than 3 points order OT Admission Screening Reason For Exam: Triggered on Admission Diagnosis: Altered mental status, acute renal failure, UTI Open Wound/Cellutlitis/Pressure Ulcers: Yes Acute Fx/ORIF/Change in wt bearing status: No Severe MUSCULOSKELETAL pain: No ADL Dysfunction: No Acute CVA w/Hemiparesis/Hemiplegia: No Decreased Functional Mobility/Strength: No Sprain/Strain: No Acute Post-op Mobility Dysfunction: No Total Points: 5 PT Screen per Nursing Assess ONCE Comment: Protocol Order Physician Instructions: Greater than 3 points order PT Admission Screenin Reason For Exam: Triggered on Admission Diagnosis: Altered mental status, acute renal failure, UTI Open Wound/Cellutlitis/Pressure Ulcers: Yes Acute Fx/ORIF/Change in wt bearing status: No Severe MUSCULOSKELETAL pain: No ADL Dysfunction: No Acute CVA w/Hemiparesis/Hemiplegia: No Decreased Functional Mobility/Strength: No Sprain/Strain: No Acute Post-op Mobility Dysfunction: No Total Points: 5 RT Screen per Nursing Assess ONCE Comment: Protocol Order Physician Instructions: Greater than 3 points order RT Admission Screen Reason For Exam: Triggered on Admission Diagnosis: Altered mental status, acute renal failure, UTI Diagnosis: Altered mental status, acute renal failure, UTI Home O2: Yes: PRN Home Nebs/MDI: Yes Total Points: 10 09/08/22 03:21 Oxygen Nasal Cannula 2 lpm Comment: Diagnosis: Altered mental status, acute renal failure, UTI 09/08/22 12:50 PT Eval & Treat ( Order) ONCE Reason for Eval:: debility Diagnosis: Altered mental status, acute renal failure, UTI 09/11/22 09:38 OT Eval and Treat ( Order) ONCE Comment: Physician Instructions: Reason For Exam: Discharge Exam Wound Assessment: Skin/Wound Assessment Wound/Incision Assessment Start: 09/07/22 21:29 Text: Status: Active Freq: Q6H Protocol: Document 09/13/22 08:00 ENDY (Rec: 09/13/22 08:11 ENDY [id number]) Wound/Incision Assessment right buttock Wound Assessment Shift Assessment Wound Type Abrasion Wound Stage Unstageable Drainage Amount Minimal Drainage Description Serous Drainage Odor None/Absent General Appearance Clean/Dry Wound Bed Greatest Portion Red (Granulation) Surrounding Tissue [place] Wound Photo Photo Taken Yes Date: 09/07/22 Time: 22:00 Comments: GENERAL: Sitting up in chair in no acute distress NEURO: Alert, oriented x3, normal affect CV: Regular rate and rhythm, no murmurs, no edema PULM: Clear to auscultation bilaterally, no work of breathing ABD: Soft, nontender, nondistended Final Diagnosis/Problem List - Final Discharge Diagnosis/Problem (1) UTI (urinary tract infection) Current Visit: Yes Status: Acute Code(s): N39.0 - URINARY TRACT INFECTION, SITE NOT SPECIFIED (2) Anemia of chronic disease Current Visit: Yes Status: Acute Code(s): D63.8 - ANEMIA IN OTHER CHRONIC DISEASES CLASSIFIED ELSEWHERE (3) Toxic metabolic encephalopathy Current Visit: Yes Status: Acute Code(s): G92.8 - OTHER TOXIC ENCEPHALOPATHY (4) Acute renal failure Current Visit: Yes Status: Acute Telemedicine Encounter - Telemedicine Encounter Telemedicine Encounter: The entirety of this encounter was performed via Telemedicine" - Discharge Discharge Date: 09/13/22 Disposition: DC TO ANY "OTHER" SNF Condition: Good Prescriptions: New Levofloxacin [Levofloxacin 500 MG Tablet] 500 mg PO DAILY #6 tablet Continue Aspirin [Aspirin EC] 1 tab PO DAILY Latanoprost 1 drop OP HS PANTOPRAZOLE 40 mg Tablet [Protonix 40MG Tablet] 40 mg PO BID Magnesium Oxide 400 mg PO DAILY hydroCHLOROthiazide [Hydrochlorothiazide] 12.5 mg PO DAILY Emollient Combination No.69 [Eucerin Skin Calming] 1 unit TOP BID Albuterol Sulfate [Albuterol Sulfate Hfa] 2 puff IH Q4HPRN PRN PRN Reason: sob/wheezing Amitriptyline HCl 25 mg [Amitriptyline 25 mg Tablet] 25 mg PO HS Atorvastatin Calcium 80 mg PO HS Metoprolol Tartrate 50 mg [Lopressor 50 MG] 50 mg PO BID Polyethylene Glycol 3350 [Clearlax] 1 scoop PO DAILY PRN PRN Reason: Constipation Additional Instructions: SNF ORDERS: ADMIT TO NURSING HOME CARE MECHANICAL SOFT DIET PT/OT EVAL AND TREAT Consider outpatient urology referral. SEE ATTACHED MED LIST Follow up with: SEDA JOY OF [Primary Care Provider] -
[2022-09-13 10:20] VITALS: PULSE 88; RESP 18; O2SAT 94
== END 2022-09-13 10:30 ==
LOC: ED 16:34 → UNDOADMOB 20:31 → MED SURG 20:31
PROVIDERS: ADMIT Internal Medicine; ATTEND Internal Medicine
DX: N39.0 Urinary tract infection, site not specified (principal); D63.8 Anemia in other chronic diseases classified elsewhere; G92.8 Other toxic encephalopathy; N17.9 Acute kidney failure, unspecified; I10 Essential (primary) hypertension; K21.9 Gastro-esophageal reflux disease without esophagitis; E78.5 Hyperlipidemia, unspecified; S30.810A Abrasion of lower back and pelvis, initial encounter; R41.82 Altered mental status, unspecified; E87.1 Hypo-osmolality and hyponatremia; L03.119 Cellulitis of unspecified part of limb; D64.9 Anemia, unspecified; Z20.828 Contact with and (suspected) exposure to other viral communicable diseases; Z79.899 Other long term (current) drug therapy
CPT/HCPCS: 36000; 36415; 36430; 51702; 70450; 71045; 80048; 80053; 81001; 83605; 83735; 83880; 84132; 84134; 84145; 84484; 85014; 85018; 85025; 85027; 86850; 86900; 86901; 86922; 87040; 87077; 87086; 87186; 93005; 93041; 94640; 94760; 97110; 97161; 97165; 97530; 99285; P9016; Q3014; G0378; J0696; J1650; A9270-GY; J3475